=== PATIENT | female | born 1985 | race Caucasian/White ===

== ENCOUNTER 2020-09-19 11:03 | Outpatient (REF) | payer OTHER, SELFPAY ==
[2020-09-19 13:34] LABS: MANUAL DIFF FLAG NO
[2020-09-19 13:46] LABS: Basophils Absolute Auto 0.1 X10*3/uL (0.0-0.2); Basophils Percent Auto 0.5 % (0-2); Eosinophils Absolute Auto 0.2 X10*3/uL (0.0-0.4); Eosinophils Percent Auto 1.5 % (0-4); Hematocrit 36.2 % (37-47); Hemoglobin 11.9 g/dl (12.0-16.0); Imm Gran Abs Auto 0.04 X10*3/uL (0.00-0.03); Imm Gran Pct Auto 0.4 % (0.0-0.4); Lymphocytes Absolute Auto 1.7 X10*3/uL (1.2-4.9); Lymphocytes Percent Auto 15.3 % (20-40); Mean Corpuscular HGB Conc 32.9 g/dl (31.0-35.0); Mean Corpuscular Hemoglobin 30.6 pg (27.0-33.0); Mean Corpuscular Volume 93.1 fL (80-98); Mean Platelet Volume 11.4 fL (9.4-12.3); Monocytes Absolute Auto 0.4 X10*3/uL (0.1-1.2); Monocytes Percent Auto 3.2 % (2-11); Neutrophils Absolute Auto 8.8 X10*3/uL (2.0-8.3); Neutrophils Percent Auto 79.1 % (45-73); Platelet Count 357 X10*3/uL (160-400); Red Blood Count 3.89 X10*6/uL (4.20-5.50); Red Cell Distribution Width 11.9 % (11.0-16.0); White Blood Count 11.1 X10*3/uL (4.8-10.8)
== END 2020-09-19 11:04 | disposition home or self-care (01) ==
LOC: HO.10HDL 11:03
PROVIDERS: Visit Provider Internal Medicine
DX: K64.9 Unspecified hemorrhoids (principal)
CPT/HCPCS: 36415; 85025

== ENCOUNTER → 2020-09-21 11:16 | Outpatient (BNVA) | payer OTHER, SELFPAY | PROVIDERS: PCP Internal Medicine; Visit Provider Surgery | DX: K64.2 Third degree hemorrhoids (principal) | CPT/HCPCS: 46600; 99202 ==

== ENCOUNTER 2020-10-03 15:45 | Emergency (ER) | payer OTHER, SELFPAY ==
[2020-10-03 15:56] VITALS: BP 138/91; PULSE 95; RESP 16; TEMP 36.7; O2SAT 100; BMI 24.7
--- NOTE | 2020-10-03 16:10 | ECG_ITS ---
Test Reason : ARM PAIN Blood Pressure : / mmHG Vent. Rate : 089 BPM Atrial Rate : 089 BPM P-R Int : 152 ms QRS Dur : 084 ms QT Int : 364 ms P-R-T Axes : 057 063 051 degrees QTc Int : 442 ms Normal sinus rhythm with sinus arrhythmia Normal ECG No previous ECGs available Referred By: Justino Bell Electronically Signed By:James Lynn
--- NOTE | 2020-10-03 16:11 | XR_ITS ---
EXAMINATION: XR CHEST CLINICAL INFORMATION: Left-sided chest pain COMPARISON: None TECHNIQUE: 2 views of the chest were obtained. FINDINGS: The lungs are clear. The vascularity is normal. The costophrenic sulci are well-defined. The heart is normal in size. The hilar and mediastinal contours and bony structures are unremarkable. XR/XR chest 2V IMPRESSION: Normal chest.
--- NOTE | 2020-10-03 16:36 | ED.GENADULT ---
HPI - General Adult General Chief complaint: Extremity Problem Stated complaint: LT ARM PAIN/PRESSURE Time Seen by Provider: 10/03/20 15:59 Source: patient Mode of arrival: EMS Limitations: no limitations History of Present Illness HPI narrative: 35-year-old female who presents emergency department for evaluation of left-sided chest pain and left arm pain which started one week prior, she had a sudden onset of left sided chest serenity while at rest. She states that the pain has been constant since onset, the pain is sharp and is [id number] in intensity, the pain is worsened if she pushes on the area of pain, the pain does not change with movement or with breathing. She also complains of sudden onset of left arm pain which started 1 hour prior to coming to the emergency department. She developed a sharp pain in her left arm that radiated all the way down to her hand. She states that the pain was constant and moderate in intensity. The pain resolved but she now has a mild heavy sensation a in her left arm. She denies any weakness. She denies headache, nausea, vomiting, neck pain. She has not had any known injury. She does not take control pills. She has not been on any long trips recently. She denies pain or swelling in her lower extremities. Related Data Home Medications Medication Instructions Recorded Confirmed No Known Home Meds 09/21/20 09/21/20 Allergies Allergy/AdvReac Type Severity Reaction Status Date / Time No Known Allergies Allergy Unverified 05/25/20 16:15 [No Known Allergies*] Review of Systems Review of Systems: Yes all other systems are reviewed and are negative Neurologic: Reports Abnormal speech present [facility] Past Medical History [facility] Narrative: The patient has acne which she takes spironolactone for, she is not taking this medication in over 1 week, she denies tobacco use, she occasionally drinks alcohol, she denies drug use. Medical History (Updated 09/21/20 @ 11:45 by Wayne Wiley MD) Hemorrhoids that prolapse with straining and require manual replacement back inside anal canal Surgical History (Updated 09/21/20 @ 11:27 by JEFF Vines) History of wisdom tooth extraction Family History Family History (Updated 09/21/20 @ 11:28 by JEFF Vines) Maternal Grandmother History of colon cancer Social History Social History (Updated 09/21/20 @ 11:28 by JEFF Vines) Alcohol intake: current Alcohol intake frequency: holidays/special occasions only Smoking Status: Never smoker Advance Directives: No Advance Directives Information Provided: No Physical Exam Vital Signs: Vital Signs: Last Vital Signs Temp 98.7 F 10/03/20 17:02 Pulse 87 10/03/20 17:02 Resp 17 10/03/20 17:02 BP 107/64 10/03/20 17:02 Pulse Ox 100 10/03/20 17:02 Body Mass Index 24.7 Const: General: cooperative and healthy appearing Orientation/consciousness: oriented to person and oriented to place Limitations: no limitations HENMT: Head: Yes normal to inspection, Yes normocephalic and Yes atraumatic Ears: external ears normal General nose exam: Normal external nose present Face and sinus: Yes normal facial exam Mouth: Normal oral and palatal mucosa present Throat: Yes posterior oropharynx normal Eyes: Periorbital: periorbital findings normal Eyelids: Yes eyelids normal Conjunctivae: conjunctivae normal Sclerae: sclerae normal Corneas: corneas normal Pupils: Equal, round and reactive pupils present Direct Ophthalmoscopy: normal light reflex Neck: Neck: Yes full ROM, Yes no lymphadenopathy, Yes no meningeal signs, Yes trachea midline and Yes supple Chest: Chest palpation & inspection: normal inspection of the chest and tenderness (Left anterior chest) Resp: Effort & Inspection: normal respiratory effort and able to speak in complete sentences Auscultation: clear to auscultation bilaterally Cardio: Rate: regular rate Rhythm: regular rhythm Heart sounds: S1 normal heart sound present, S2 normal heart sound present and no murmurs GI: Inspection: Yes normal to inspection Palpation (GI): Soft to palpation, nontender, no guarding, not rigid and No hepatosplenomegaly present : General: Yes no CVA tenderness Back/Spine/Pelvis: Back: no CVA tenderness Cervical Spine: normal cervical lordosis Thoracic/Lumbar Spine: thoracic and lumbar spine normal to inspection Skin: Lesions: no lesions Rashes: no rashes Wounds: no wounds Neuro: General: oriented to person, oriented to place and no meningeal signs Cranial nerves: Yes CN's II-XII intact bilaterally and Yes Equal, round and reactive pupils present Cognition (Neuro): normal cognition Speech: Abnormal speech present Motor exam (neuro): 5/5 motor strength present throughout Extrem: General: Yes normal to inspection, Yes full ROM and Yes other (Normal strength, normal light touch he) Psych: Appearance: well kempt Mental Status: mental status grossly normal Speech and movement: Normal speech and movement present Affect: normal affect Attitude: cooperative Thought process: Normal thought process present Thought content: Normal thought content present Course Course Course Narrative: 35-year-old female who presents emergency department for evaluation left-sided anterior chest pain x1 week and left arm pain and heaviness which began 1 hour prior to coming to the emergency department. Physical examination did reveal tenderness with palpation of the left anterior chest otherwise was unremarkable. Chest x-ray revealed no evidence of pneumonia or pneumothorax. Twelve lead EKG was normal. My impression is that the patient's pain is atypical for cardiac pain and atypical for neurologic pain in is most consistent with costochondritis. I did discuss this with the patient. She was given verbal and printed instructions and discharged home. Medical Decision Making ECG Data Attestation: I personally reviewed and interpreted this ECG as follows: Interpretation: 1638: Normal sinus rhythm with a rate of 89, normal OR, QRS and QTC intervals, no T-wave abnormalities, no ST segment elevation or depression. This is a normal EKG. Discharge Plan Discharge Prescriptions: No Action No Known Home Meds RF: 0
[2020-10-03 17:02] VITALS: BP 107/64; PULSE 87; RESP 17; TEMP 37.1; O2SAT 100
== END 2020-10-03 17:53 | disposition home or self-care (01) ==
PROVIDERS: Emergency Provider Emergency Medicine Emergency Medical Services; PCP Internal Medicine
DX: M94.0 Chondrocostal junction syndrome [Tietze] (principal); M79.602 Pain in left arm
CPT/HCPCS: 71046; 93005; 99283

== ENCOUNTER 2020-10-27 08:35 | Day surgery (SDC) | payer OTHER, SELFPAY ==
[2020-10-20 15:18] VITALS: BMI 25.0
--- NOTE | 2020-10-26 09:04 | P.CONAN_ITS ---
Documented by User: Martina Brice 10/26/20 09:06 HPI - Anesthesia Eval Consult details Narrative: 35yo F for EUA, Hemorrhoidectomy PMFSH Active Problems Active Problems: All Active Problems (Updated 10/04/20 @ 00:00 by Rosangela Vargas) Hemorrhoids that prolapse with straining and require manual replacement back inside anal canal (Acute) Past Medical History Medical History No significant past medical history Family History Family History Maternal Grandmother History of colon cancer Surgical History Surgical History (Updated 10/27/20 @ 09:19 by Vilma Sommer) History of wisdom tooth extraction Hx of lithotripsy Social History Social History Are you a primary hemodialysis patient care specialist to a significant other at home: No Do you presently have visiting nurse or other home services: No Alcohol intake: current Alcohol intake frequency: holidays/special occasions only Smoking Status: Never smoker Advance Directives: No Advance Directives Information Provided: No Advance Directives on File: No Recently lost weight without trying: No Meds Allergies Allergy/AdvReac Type Severity Reaction Status Date / Time No Known Allergies Allergy Verified 10/27/20 08:58 [No Known Allergies*] Exam Exam Date and Time: October 26, 2020 0904 Height,Weight and Vital Signs: Height 5 ft 3 in Weight 63.957 kg Assessment and Plan Assessment Anesthesia Assessment: Chart Reviewed Documented by User: Vilma Sommer 10/27/20 09:21 PMFSH Active Problems Active Problems: Tachycardia today- anxious, 'feels hot' . No fever Past Medical History Medical History No significant past medical history Family History Family History Maternal Grandmother History of colon cancer Family history of problems with anesthesia: No Surgical History Surgical History (Updated 10/27/20 @ 09:19 by Vilma Sommer) History of wisdom tooth extraction Hx of lithotripsy History of Problems with Anesthesia: No Social History Social History Are you a primary hemodialysis patient care specialist to a significant other at home: No Do you presently have visiting nurse or other home services: No Alcohol intake: current Alcohol intake frequency: holidays/special occasions only Smoking Status: Never smoker Advance Directives: No Advance Directives Information Provided: No Advance Directives on File: No Recently lost weight without trying: No Meds Allergies Allergy/AdvReac Type Severity Reaction Status Date / Time No Known Allergies Allergy Verified 10/27/20 08:58 [No Known Allergies*] Exam Height,Weight and Vital Signs: Vital Signs Temp Pulse Resp BP Pulse Ox 10/27/20 08:53 98.7 F 114 H 16 117/82 98 Pertinent Lab Results Pertinent Lab Results: Lab Results 10/27/20 Range/Units 08:42 Urine Test NEGATIVE (NEGATIVE) Airway Mallampati Class: II TM Dist: >3cm Neck ROM: Full Loose/Missing/Broken Teeth: No Heart: RRR Lungs: CTAB Assessment and Plan Assessment Anesthesia Assessment: Anesthesia Plan Discussed and Chart Reviewed Final Anesthetic Review NPO: Yes ASA Class: I Final Preanesthetic Review: No Changes in Pt Med Stat, Meds/Allgs Chart Reviewed, Consent Obtained/Reviewed and Anes Risks/Benef Reviewed Patient Risk: Low Procedure Risk: Low Assessment/Block/Sedation in SS: Assess/Block/Sedation- Anesthetic Plan Anesthetic Plan: GA Disposition: Standard PACU
[2020-10-27] VITALS (10 sets, daily range): BP systolic 110–127; BP diastolic 67–82; PULSE 81–125; RESP 16–20; TEMP 36.3–37.1; O2SAT 96–100
--- NOTE | 2020-10-27 08:48 | MHC.SHP ---
Pre-Procedural Eval Section B Chief Complaint: Prolapsed Hemorrhoids Details of Present Illness: zendejas prolapsing hemorrhoids Relevant Family History (Specify if Yes): No Relevant Social History: None Present Medications: see Short Stay Collaborative assessment Medical History: No relevant PMH History of Previous Operations: No relevant previous surgery Allergies: Allergies Allergy/AdvReac Type Severity Reaction Status Date / Time No Known Allergies Allergy Unverified 10/20/20 15:11 [No Known Allergies*] Review of Systems Sugical H&P ROS: Negative: Constitution, Cardiovascular, Respiratory, Neurological, Psychiatric, Hem-Onc, Allergic/Immunologic, Gastrointestinal, Genitourinary, Musculoskeletal, Integumentary, Endocrine and Eyes/Ears/Nose/Throat Exam Surgical H&P Exam: Normal: HEENT, Normal: Heart, Normal: Lungs, Normal: Extremities, Normal: Abdomen, Normal: Skin and Normal: Neurological Plan Diagnosis/Plan: Unchanged I have reviewed the history and physical and performed a pertinent physical examination on my patient. No changes have occurred unless specified.
[2020-10-27 08:58] LABS: Urine Pregnancy NEGATIVE (NEGATIVE)
[2020-10-27 08:59] LABS: UPreg QC Valid YES
[2020-10-27] MEDS: Lactated Ringers 1,000 ML 100 ML IVCONT (09:16)
--- NOTE | 2020-10-27 10:26 | W.PM.OPN ---
Operative Note Operative Note Date of Service: 10/27/20 Narrative: PREOP DIAGNOSIS: INTERNAL AND EXTERNAL HEMORRHOIDS POSTOP DIAGNOSIS: THE SAME; ANAL PAPILLOMA PROCEDURE DONE: EXAM UNDER ANESTHESIA, HEMORRHOIDECTOMY, CAUTERIZATION OF A PAPILLOMA IN THE ANAL CANAL SURGEON: MARGARITA MORGAN M.D. The patient is a 55 year female was referred to me because of prolapsing hemorrhoids with significant discomfort. She was seen in the office and was noted to have an easily prolapsing large internal hemorrhoid on the right side along with some accompanying external component. She wanted proceed with hemorrhoidectomy in view of discomfort and pain. She was aware of the risks, benefits, and alternatives. She was brought to the operating room and placed in prone maryanne-knife position under general anesthesia via endotracheal tube. The buttocks were retracted with wide tape laterally. The perianal area was prepped in usual sterile fashion. A surgical time-out was done. The patient received Cefotan 2 g IV preoperatively. Examination of the anal orifice revealed an external hemorrhoidal column on the right. I inserted a Amanda Nielson retractor into the anal canal. I examined the anal canal circumferentially. Proximal to the hemorrhoidal column into the anal canal was note of a large, long 3 cm internal hemorrhoid that appeared to easily prolapse. This was fat with a Burns grasper. I created a eupjvi-am-chekw stitch at the pedicle just proximal to this column. I made an incision around this hemorrhoidal column to the perianal skin using blade 15. I excised this hemorrhoidal column above the plane of sphincters using scissors. I closed this incision with a running chromic 3-0 stitch. Additional hemostatic pehowo-hx-isidz sutures were placed for oozing areas I examined the rest of the anal canal. There was note of a small papillomatous lesion in the anal canal about 4 mm in size and this is cauterize. Other than that, there were no lesions seen. There is no induration or any fissure. I infiltrated the perianal area Marcaine 0.5% for postop analgesia. The procedure was then completed. The patient appears well. The complain noted. Initial fine counts sponge and instruments were correct. Estimated blood loss was 5 cc. The patient extubated without difficulty and transferred to recovery room with vital signs.
--- NOTE | 2020-10-27 10:32 | PM.OP ---
Brief Operative Note Date of Service: 10/27/20 Pre-op diagnosis: HEMORRHOIDS Post-op diagnosis: same Procedure: EUA, HEMORRHOIDECTOMY Surgeon: Wayne Wiley MD Anesthesia: GETA Estimated blood loss (mL): 2 Pathology: other (HEMORRHOIDS)
[2020-10-27] MEDS: Acetaminophen 325 MG TABLET 650 MG PO (10:52)
[2020-10-27] MEDS: oxyCODONE HCl Immed Release 5 MG TABLET PO (10:52)
[2020-10-27] MEDS: fentaNYL citrate/PF 100 MCG/2 ML VIAL 25 MCG IVPUSH ×2 (11:37→11:42)
== END 2020-10-27 12:32 | disposition home or self-care (01) ==
PROVIDERS: Nurse Practitioner; PCP Internal Medicine; Visit Provider Surgery
PROC: (CPT 46255; principal; 2020-10-27 09:50)
DX: K64.2 Third degree hemorrhoids (principal); K64.4 Residual hemorrhoidal skin tags; D12.9 Benign neoplasm of anus and anal canal
CPT/HCPCS: 46255; 46910; 81025; 88304; J0330; J2250; J2405; J3010

== ENCOUNTER → 2020-11-08 08:53 | Outpatient (BNVA) | payer OTHER, SELFPAY | PROVIDERS: PCP Internal Medicine; Visit Provider Surgery | DX: K64.2 Third degree hemorrhoids (principal) | CPT/HCPCS: 99212 ==

== ENCOUNTER 2021-01-23 11:36 | Emergency (ER) | payer OTHER, SELFPAY ==
--- NOTE | ~2021-01-23 | US_ITS ---
EXAMINATION: PELVIC ULTRASOUND, TRANSCUTANEOUS PELVIC ULTRASOUND, TRANSVAGINAL PELVIC DOPPLER INCLUDING SPECTRAL ANALYSIS AND COLOR MAPPING CLINICAL INFORMATION: Left lower quadrant pain. Status post medical . Evaluate for torsion, abscess or retained products of conception COMPARISON: None TECHNIQUE: Transcutaneous pelvic ultrasound The patient was asked to void completely and reexamined vaginally to better characterize the endometrial contents and adnexa. Color mapping and spectral analysis with Doppler assessment of the adnexa FINDINGS: Transcutaneous scanning does not demonstrate any abnormality in the region of the vagina. No large adnexal mass or collection. Transvaginal scanning demonstrates the uterus is anteverted. The uterus measures 8.5 x 4.3 x 5.4 cm. The cervix measures at least 4.0 cm. Some small hypoechoic areas within the cervical stroma suggest nabothian cysts. The endometrium is heterogeneous and measures approximately 1.5 cm. The interface between the endometrial echo stripe and junctional zone is slightly irregular. This could reflect recent procedure. The myometrium is slightly heterogeneous without a discrete mass. No collection within the myometrium. The right ovary is not definitely identified. No suspicious right adnexal mass or collection. The left ovary measures approximately 5.0 x 3.2 x 3.6 m. The estimated left ovarian volume is 30 mL. This is enlarged. There are several simple appearing left ovarian cysts. There is color signal present within the left ovary. There are venous and low resistance arterial spectra obtained from the left adnexa. No suspicious solid left ovarian mass. There is a small amount of nonspecific free pelvic fluid. US/US pelvic ovarian doppler IMPRESSION: Some heterogeneous thickening of the endometrium. This could reflect recent . There is no definite retained products of conception, abscess or ectopic gas within the endometrial cavity. The right ovary is not demonstrated. Small amount of nonspecific free pelvic fluid. There is no Doppler evidence of left ovarian torsion
--- NOTE | ~2021-01-23 | CT_ITS ---
EXAMINATION: CT ABDOMEN AND PELVIS WITHOUT CONTRAST CLINICAL INFORMATION: abd and rectal pain . COMPARISON: No pertinent prior studies are available for comparison. TECHNIQUE: Multidetector volumetric imaging was performed from the superior aspect of the liver through the pubic symphysis without contrast per renal stone protocol. Sagittal and coronal reformatted images were obtained on the technologist workstation. This CT examination was performed using dose optimization techniques as appropriate, variously including the following: *Automated exposure control *Adjustment of mA and/or kV according to patient size (this includes techniques or standardized protocols for targeted exams where dose is matched to indication/reason for exam; i.e. extremities or head) *Use of iterative reconstruction technique DLP: 452 mGy-cm. FINDINGS: LUNG BASES: The visualized lung bases are unremarkable. LIVER, GALLBLADDER, BILIARY TREE: The non-contrast liver is normal in size, shape, and attenuation. No focal hepatic lesion or biliary ductal dilatation is present. The gallbladder is contracted but unremarkable with no evidence of radiopaque gallstones, gallbladder wall thickening, or obvious pericholecystic inflammatory changes. PANCREAS: Unremarkable. SPLEEN: Unremarkable. ADRENAL GLANDS: Unremarkable. KIDNEYS AND URETERS: The kidneys are normal in size, shape, and attenuation. No hydronephrosis, hydroureter, or calculi seen. No perinephric stranding. BLADDER: Unremarkable. GASTROINTESTINAL TRACT: The small and large bowel are unremarkable. The appendix is unremarkable. ABDOMINAL WALL: No significant hernia is appreciated. LYMPHOVASCULAR STRUCTURES: No lymphadenopathy. The aorta is unremarkable.. PELVIC VISCERA: Physiologic changes in the bilateral adnexa. Coarse calcification abutting the fundal portion of uterus possibly related to an old calcified fibroid or previous torsed appendage epiploica but this is of no acute significance. OSSEUS STRUCTURES: Unremarkable. CT/CT abdomen pelvis wo con IMPRESSION: No acute intra-abdominal process seen. Physiologic and chronic appearing changes noted.
[2021-01-23 12:20] VITALS: BP 149/86; PULSE 109; RESP 18; TEMP 37.1; O2SAT 100; BMI 24.7
[2021-01-23 14:06] LABS: MANUAL DIFF FLAG NO
[2021-01-23 14:09] LABS: Basophils Absolute Auto 0.1 X10*3/uL (0.0-0.2); Basophils Percent Auto 0.5 % (0-2); Eosinophils Absolute Auto 0.1 X10*3/uL (0.0-0.4); Eosinophils Percent Auto 0.8 % (0-4); Hematocrit 36.6 % (37-47); Hemoglobin 12.4 g/dl (12.0-16.0); Imm Gran Abs Auto 0.08 X10*3/uL (0.00-0.03); Imm Gran Pct Auto 0.7 % (0.0-0.4); Lymphocytes Absolute Auto 1.7 X10*3/uL (1.2-4.9); Lymphocytes Percent Auto 14.4 % (20-40); Mean Corpuscular HGB Conc 33.9 g/dl (31.0-35.0); Mean Corpuscular Volume 91.5 fL (80-98); Monocytes Absolute Auto 0.3 X10*3/uL (0.1-1.2); Monocytes Percent Auto 2.8 % (2-11); Neutrophils Absolute Auto 9.5 X10*3/uL (2.0-8.3); Neutrophils Percent Auto 80.8 % (45-73); Platelet Count 345 X10*3/uL (160-400); White Blood Count 11.7 X10*3/uL (4.8-10.8)
[2021-01-23 14:14] LABS: UPreg QC Valid YES; Urine Pregnancy NEGATIVE (NEGATIVE)
[2021-01-23 14:24] LABS: Glucose Urine UA NEG (NEG); Leukocyte Esterase Urine NEG (NEG); Nitrite Urine NEG (NEG); Specific Gravity - Urine <= 1.005 (1.005-1.025); Urine Blood TRACE (NEG); Urine Ketones NEG (NEG); Urine Protein NEG (NEG-TRACE)
[2021-01-23 14:25] LABS: Appearance Urine CLEAR; Color Urine YELLOW
[2021-01-23 14:30] LABS: Squamous Epithelial Cell Urine 1+ /LPF; WBC Urine 0 /HPF (0-4)
[2021-01-23 14:37] LABS: Alanine Aminotransferase 8 U/L (0-31); Albumin Level 4.5 g/dL (3.5-5.0); Alkaline Phosphatase 72 U/L (39-117); Anion Gap 14 (12-20); Aspartate Amino Transferase 15 U/L (5-31); Bilirubin Total 0.8 mg/dL (0.0-1.0); Blood Urea Nitrogen 8 mg/dL (9-16); Calcium 9.1 mg/dL (8.4-10.2); Carbon Dioxide 22 mmol/L (22-29); Chloride 105 mmol/L (96-108); Creatinine Clr Calc Pharmacy 94.8; Estimated Glomerular Filt Rate > 60; Glucose Random 116 mg/dL (60-115); Potassium 3.9 mmol/L (3.3-5.1); Sodium 137 mmol/L (135-145); Total Protein 7.5 g/dL (6.5-8.0)
[2021-01-23 15:48] VITALS: BP 140/87; PULSE 104; RESP 16; TEMP 36.9; O2SAT 100
--- NOTE | 2021-01-23 16:41 | PC.NURSE ---
Pt declined IV and pain medication. She states that she is not in pain but rather has some lower abdominal discomfort . Memo LEAL aware. Pt to be brought to ultrasound at this time.
[2021-01-23 16:57] LABS: HCG Quantitative < 2 mIU/mL
--- NOTE | 2021-01-23 17:43 | ED.ABDPAIN ---
HPI - Abdominal Pain General Chief Complaint: Abdominal Pain Stated Complaint: ABD PAIN Time Seen by Provider: 01/23/21 15:59 Source: patient Mode of arrival: ambulatory Limitations: no limitations History of Present Illness HPI narrative: Patient presents to ED for evaluation for left suprapubic pain/cramping and evaluation for possible retained products. Patient had an on December 15 and had ultrasound which showed retained products, but patient never had a follow-up. Patient was informed by her OBGYN may be the product could be removed on his own through vaginal bleeding. Patient states history of left ovarian cyst and started having left suprapbuci pain since Friday and was concerned maybe she still have retained products. Patient describes left pubic pain as cramping. Patient denies any vaginal bleeding, flank pain, fever, or chills. Patient denies any right lower quadrant pain or upper abdominal pain Related Data Previous Rx's Medication Instructions Recorded docusate sodium [Colace] 100 mg PO BID #60 cap 10/27/20 ibuprofen 600 mg PO Q6H PRN #30 tab 10/27/20 oxycodone-acetaminophen [Percocet] 1 - 2 tab PO Q4-6H PRN #30 tab 10/27/20 Allergies Allergy/AdvReac Type Severity Reaction Status Date / Time seafood Allergy Angioedema Verified 01/23/21 12:20 Review of Systems Review of Systems Yes all other systems are reviewed and are negative Constitutional: Reports as per HPI and Reports no additional constitutional complaints Eyes: Reports as per HPI and Reports no additional eye complaints Reports system reviewed and no additional complaints, except as documented and Reports as per HPI Cardiovascular: Reports as per HPI and Reports no additional cardiovascular complaints Respiratory: Reports as per HPI and Reports no additional respiratory complaints Gastrointestinal: Reports as per HPI and Reports no additional gastrointestinal complaints Comments: Suprapubic pain Genitourinary: Reports no additional female genitourinary complaints and Reports as per HPI Musculoskeletal: Reports no additional musculoskeletal complaints and Reports as per HPI Reports system reviewed and no additional complaints, except as documented and Reports as per HPI Psychiatric: Reports no additional psychiatric complaints and Reports as per HPI Physical Exam Vital Signs: Vital Signs: Last Vital Signs Temp 98.4 F 01/23/21 15:48 Pulse 104 H 01/23/21 15:48 Resp 16 01/23/21 15:48 BP 140/87 H 01/23/21 15:48 Pulse Ox 100 01/23/21 15:48 Body Mass Index 24.7 Const: General: cooperative, healthy appearing, comfortable, no acute distress, well developed, alert and awake Orientation/consciousness: patient oriented x3 HENMT: Head: Yes normal to inspection, Yes No palpable skull fracture present, Yes normocephalic, Yes atraumatic and No abrasion Eyes: General: appearance normal, both eyes and all related structures Neck: Neck: Yes normal visual inspection, Yes full ROM, Yes no lymphadenopathy, Yes no meningeal signs, Yes trachea midline, Yes supple and No tender Chest: Chest palpation & inspection: normal inspection of the chest and normal palpation of entire chest wall Resp: Effort & Inspection: normal respiratory effort and able to speak in complete sentences Auscultation: clear to auscultation bilaterally Cardio: Jugular venous distension: no JVD Heart sounds: S1 normal heart sound present and S2 normal heart sound present GI: Inspection: Yes normal to inspection and No abdominal wall ecchymosis Palpation (GI): Soft to palpation, not firm, Tenderness to palpation present (GI) suprapubicly (Left); not in the epigastrum, not in the LLQ, not in the RLQ, not in the LUQ, not in the RUQ, not at McBurney's point, not periumbilically, Miller's sign negative, obturator sign negative, psoas sign negative, with no rebound tenderness and Rovsing's sign negative, no guarding and not rigid : General: No CVA tenderness and Yes no CVA tenderness Back/Spine/Pelvis: Back: no CVA tenderness, No CVA tenderness and No back tenderness Skin: General skin exam: no rashes or lesions noted and elasticity normal Neuro: General: patient oriented x3, no meningeal signs and CN's II-XI intact bilaterally Cranial nerves: Yes CN's II-XII intact bilaterally Extrem: General: Yes normal to inspection and Yes full ROM Psych: Appearance: grossly normal, well kempt and not disheveled Course Course Course Narrative: Patient have labs drawn. UA ordered. Not suspecting any abdominal etiology for symptom or pelvic issues. Send patient for transvaginal ultrasound to rule out retained products and ovarian torsion and ovarian cyst. Patient presently does not want any IV or pain medication. Patient states pain resolved. Reevaluation(s) Reevaluation #1: Case signed out to GIRISH Patiño for follow up. MDM - Abdominal Pain Lab Data Result diagrams: 01/23/21 14:00 01/23/21 14:00 Labs: Lab Results 01/23/21 01/23/21 01/23/21 Range/Units 14:00 14:00 14:00 WBC 11.7 H (4.8-10.8) X10*3/uL RBC 4.00 L (4.20-5.50) X10*6/uL Hgb 12.4 (12.0-16.0) g/dl Hct 36.6 L (37-47) % MCV 91.5 (80-98) fL MCH 31.0 (27.0-33.0) pg MCHC 33.9 (31.0-35.0) g/dl RDW 12.0 (11.0-16.0) % Plt Count 345 (160-400) X10*3/uL MPV 11.0 (9.4-12.3) fL Immature Gran % (Auto) 0.7 H (0.0-0.4) % Neut % (Auto) 80.8 H (45-73) % Lymph % (Auto) 14.4 L (20-40) % [place] % (Auto) 2.8 (2-11) % Eos % (Auto) 0.8 (0-4) % Baso % (Auto) 0.5 (0-2) % Lymph # (Auto) 1.7 (1.2-4.9) X10*3/uL [place] # (Auto) 0.3 (0.1-1.2) X10*3/uL Eos # (Auto) 0.1 (0.0-0.4) X10*3/uL Baso # (Auto) 0.1 (0.0-0.2) X10*3/uL Abs Immat Gran (auto) 0.08 H (0.00-0.03) X10*3/uL Absolute Neuts (auto) 9.5 H (2.0-8.3) X10*3/uL Absolute Nucleated RBC 0.000 (0.0-0.012) X10*3/uL Nucleated RBC % (auto) 0.0 (0.0-0.2) /100WBC Hold Blue Top SEE NOTE Sodium (135-145) mmol/L Potassium (3.3-5.1) mmol/L Chloride (96-108) mmol/L Carbon Dioxide (22-29) mmol/L Anion Gap (12-20) BUN (9-16) mg/dL Creatinine (0.5-1.4) mg/dL Estim Creat Clear Calc Estimated GFR Random Glucose (60-115) mg/dL Calcium (8.4-10.2) mg/dL Total Bilirubin (0.0-1.0) mg/dL AST (5-31) U/L ALT (0-31) U/L Alkaline Phosphatase (39-117) U/L Total Protein (6.5-8.0) g/dL Albumin (3.5-5.0) g/dL Beta HCG, Quant mIU/mL Urine Color Urine Appearance Urine pH (5.0-8.0) Ur Specific [place] (1.005-1.025) Urine Protein (NEG-TRACE) MG/DL Urine Glucose (UA) (NEG) MG/DL Urine Ketones (NEG) MG/DL Urine Blood (NEG) Urine Nitrite (NEG) Ur Leukocyte Esterase (NEG) Urine RBC (0) /HPF Urine WBC (0-4) /HPF Ur Squamous Epith Cells /LPF Urine Bacteria /LPF Urine Test NEGATIVE (NEGATIVE) 01/23/21 01/23/21 Range/Units 14:00 14:00 WBC (4.8-10.8) X10*3/uL RBC (4.20-5.50) X10*6/uL Hgb (12.0-16.0) g/dl Hct (37-47) % MCV (80-98) fL MCH (27.0-33.0) pg MCHC (31.0-35.0) g/dl RDW (11.0-16.0) % Plt Count (160-400) X10*3/uL MPV (9.4-12.3) fL Immature Gran % (Auto) (0.0-0.4) % Neut % (Auto) (45-73) % Lymph % (Auto) (20-40) % [place] % (Auto) (2-11) % Eos % (Auto) (0-4) % Baso % (Auto) (0-2) % Lymph # (Auto) (1.2-4.9) X10*3/uL [place] # (Auto) (0.1-1.2) X10*3/uL Eos # (Auto) (0.0-0.4) X10*3/uL Baso # (Auto) (0.0-0.2) X10*3/uL Abs Immat Gran (auto) (0.00-0.03) X10*3/uL Absolute Neuts (auto) (2.0-8.3) X10*3/uL Absolute Nucleated RBC (0.0-0.012) X10*3/uL Nucleated RBC % (auto) (0.0-0.2) /100WBC Hold Blue Top Sodium 137 (135-145) mmol/L Potassium 3.9 (3.3-5.1) mmol/L Chloride 105 (96-108) mmol/L Carbon Dioxide 22 (22-29) mmol/L Anion Gap 14 (12-20) BUN 8 L (9-16) mg/dL Creatinine 0.75 (0.5-1.4) mg/dL Estim Creat Clear Calc 94.8 Estimated GFR > 60 Random Glucose 116 H (60-115) mg/dL Calcium 9.1 (8.4-10.2) mg/dL Total Bilirubin 0.8 (0.0-1.0) mg/dL AST 15 (5-31) U/L ALT 8 (0-31) U/L Alkaline Phosphatase 72 (39-117) U/L Total Protein 7.5 (6.5-8.0) g/dL Albumin 4.5 (3.5-5.0) g/dL Beta HCG, Quant < 2 mIU/mL Urine Color YELLOW Urine Appearance CLEAR Urine pH 6.0 (5.0-8.0) Ur Specific [place] <= 1.005 (1.005-1.025) Urine Protein NEG (NEG-TRACE) MG/DL Urine Glucose (UA) NEG (NEG) MG/DL Urine Ketones NEG (NEG) MG/DL Urine Blood TRACE (NEG) Urine Nitrite NEG (NEG) Ur Leukocyte Esterase NEG (NEG) Urine RBC 1-4 (0) /HPF Urine WBC 0 (0-4) /HPF Ur Squamous Epith Cells 1+ /LPF Urine Bacteria NONE /LPF Urine Test (NEGATIVE) Discharge Plan Discharge Prescriptions: No Action oxycodone-acetaminophen [Percocet] 5-325 mg tablet 1 - 2 tab PO Q4-6H PRN (Reason: pain) Qty: 30 RF: 0 docusate sodium [Colace] 100 mg capsule 100 mg PO BID Qty: 60 RF: 2 ibuprofen 600 mg tablet 600 mg PO Q6H PRN (Reason: pain) Qty: 30 RF: 0 PMFSH Past Medical History Medical History No significant past medical history Surgical History History of hemorrhoidectomy History of wisdom tooth extraction Hx of lithotripsy Family History Family History Maternal Grandmother History of colon cancer Social History Social History Alcohol intake: never Smoking Status: Never smoker Use of substances other than those prescribed or required for medical reasons: No Advance Directives: Yes Advance Directives Information Provided: Yes Advance Directives on File: No Patient : No
[2021-01-23] MEDS: metroNIDAZOLE 500 MG TABLET PO (20:23)
[2021-01-23] MEDS: Fluconazole 150 MG TABLET PO (20:23)
[2021-01-23 21:05] VITALS: BP 131/79; PULSE 96; RESP 20; TEMP 36.9; O2SAT 100
[2021-01-24 09:58] LABS: CT PCR NOT DETECTED (Not Detect.); NG PCR NOT DETECTED (Not Detect.)
[2021-01-24 11:26] LABS: BV Int Neg Control Negative (Negative); BV Int Pos Control Positive (Positive)
== END 2021-01-23 21:27 | disposition home or self-care (01) ==
PROVIDERS: Nurse Practitioner Family; Physician Assistant; Emergency Provider Emergency Medicine; PCP Internal Medicine
DX: B37.3 Candidiasis of vulva and vagina (principal); R10.32 Left lower quadrant pain
CPT/HCPCS: 36415; 74176; 76830; 76856; 80053; 81001; 81025; 84702; 85025; 87255; 87480; 87491; 87510; 87591; 87660; 93975; 99284

== ENCOUNTER 2021-01-30 14:21 | Outpatient (REF) | payer OTHER, SELFPAY ==
[2021-01-30 15:12] LABS: MANUAL DIFF FLAG NO
[2021-01-30 15:18] LABS: Basophils Absolute Auto 0.1 X10*3/uL (0.0-0.2); Basophils Percent Auto 0.5 % (0-2); Eosinophils Absolute Auto 0.2 X10*3/uL (0.0-0.4); Eosinophils Percent Auto 1.6 % (0-4); Hematocrit 37.7 % (37-47); Hemoglobin 12.8 g/dl (12.0-16.0); Imm Gran Abs Auto 0.06 X10*3/uL (0.00-0.03); Imm Gran Pct Auto 0.5 % (0.0-0.4); Lymphocytes Absolute Auto 3.7 X10*3/uL (1.2-4.9); Lymphocytes Percent Auto 31.4 % (20-40); Mean Corpuscular Hemoglobin 31.1 pg (27.0-33.0); Mean Corpuscular Volume 91.5 fL (80-98); Mean Platelet Volume 11.6 fL (9.4-12.3); Monocytes Absolute Auto 0.5 X10*3/uL (0.1-1.2); Monocytes Percent Auto 4.6 % (2-11); Neutrophils Absolute Auto 7.2 X10*3/uL (2.0-8.3); Neutrophils Percent Auto 61.4 % (45-73); Platelet Count 396 X10*3/uL (160-400); Red Blood Count 4.12 X10*6/uL (4.20-5.50); Red Cell Distribution Width 12.2 % (11.0-16.0); White Blood Count 11.7 X10*3/uL (4.8-10.8)
[2021-01-30 15:40] LABS: D Dimer < 200 NG/ML
[2021-01-30 15:47] LABS: Alanine Aminotransferase 9 U/L (0-31); Albumin Level 4.6 g/dL (3.5-5.0); Alkaline Phosphatase 75 U/L (39-117); Anion Gap 16 (12-20); Aspartate Amino Transferase 16 U/L (5-31); Bilirubin Total 0.6 mg/dL (0.0-1.0); Blood Urea Nitrogen 5 mg/dL (9-16); C Reactive Protein 0.89 mg/dL (< or = 0.50); Calcium 9.6 mg/dL (8.4-10.2); Carbon Dioxide 22 mmol/L (22-29); Chloride 103 mmol/L (96-108); Estimated Glomerular Filt Rate > 60; Glucose Random 86 mg/dL (60-115); Potassium 3.7 mmol/L (3.3-5.1); Sodium 137 mmol/L (135-145)
== END 2021-01-30 14:22 | disposition home or self-care (01) ==
LOC: HO.LAB 14:21
PROVIDERS: PCP Internal Medicine; Visit Provider Internal Medicine
DX: R19.7 Diarrhea, unspecified (principal); R00.2 Palpitations; R06.02 Shortness of breath
CPT/HCPCS: 36415; 80053; 82550; 85025; 85379; 86140

== ENCOUNTER → 2021-02-07 11:16 | Outpatient (BNVA) | payer OTHER, SELFPAY | PROVIDERS: PCP Internal Medicine; Referring Provider Internal Medicine; Visit Provider Internal Medicine Cardiovascular Disease | DX: I49.8 Other specified cardiac arrhythmias (principal); R00.2 Palpitations | CPT/HCPCS: 99202; 99212 ==

== ENCOUNTER 2021-02-12 10:49 | Outpatient (REF) | payer OTHER, SELFPAY ==
[2021-02-12 14:15] LABS: TSH reflex Free T4 0.69 uIU/mL (0.32-4.0)
[2021-02-21 13:56] LABS: Metanephrine, Free <25
[2021-02-21 13:57] LABS: Normetanephrines, Free 25
[2021-02-21 14:00] LABS: Total Metanephrine, Free 25
== END 2021-02-12 10:50 | disposition home or self-care (01) ==
LOC: HO.10HDL 10:49
PROVIDERS: Visit Provider Internal Medicine Cardiovascular Disease
DX: R00.2 Palpitations (principal)
CPT/HCPCS: 36415; 83835; 84443

== ENCOUNTER → 2021-02-14 13:27 | Outpatient (REF) | payer OTHER, SELFPAY ==
--- NOTE | 2021-02-14 13:45 | ECG_ITS ---
Hook-up date: 2021-02-14 13:47:00 Duration: 25:26:00 Test Indications: PALPITATIONS Medications: [id number] QRS complexes 1 Ventricular ectopics which represent <1 % of total QRS comp. * Supraventricular ectopics which represent % of total QRS comp. * Paced QRS complexs which represent % of total QRS comp. VENTRICULAR ECTOPY 1 Isolated 0 Bigeminal Cycles 0 Couplets 0 Runs 0 Beats in Runs * Beats LONGEST at * BPM at :: -- * Beats FASTEST at * BPM at :: -- SUPRAVENTRICULAR ECTOPY * Isolated * Couplets * Runs * Beats in Runs * Beats LONGEST at * BPM at :: -- * Beats FASTEST at * BPM at :: -- HEART RATES 48 MIN at 05:53:28 2021-02-15 90 AVG 171 MAX at 15:27:10 2021-02-14 LONGEST RR 1.4960 secs at 06:18:16 2021-02-15 S-T LEVELS Channel 1 - 128 mm at 13:47:00 2021-02-14 - 128 mm at 13:47:00 2021-02-14 Channel 2 - 128 mm at 13:47:00 2021-02-14 - 128 mm at 13:47:00 2021-02-14 Channel 3 - 128 mm at 03:30:61 -- - 128 mm at 03:30:61 Basic rhythm Normal sinus rhythm No long pause or profound bradycardia Frequent Sinus tachycardia , 33% of time HR > 100 bpm No dangerous dysrhythm periods Patient did not report any symptoms in the diary Referred By: Arthur Florian Overread By: ARTHUR FLORIAN MD
== END ==
LOC: HO.CARD 13:27
PROVIDERS: Visit Provider Internal Medicine
DX: R00.2 Palpitations (principal)
CPT/HCPCS: 93226

== ENCOUNTER → 2021-02-19 11:19 | Outpatient (REF) | payer OTHER, SELFPAY ==
--- NOTE | 2021-02-19 11:22 | CA_ITS ---
Transthoracic Echocardiogram Patient (Last, First, Middle): Lorena Escobedo L Gender: Female Date of : 1985 Age: 35 Procedure Date: 02/19/2021 Procedure Type: Transthoracic Echocardiogram Location: OP Height: 160.02 cm Weight: 61.24 kg BSA: 1.64 m2 Heart Rate: bpm BP: 101 / 81 mmHg Bioinformatician: Referring MD: Arthur Florian MD Symptoms: R00.2 - Palpitations Study Quality: Good ECG Rhythm: Sinus tachycardia Conclusions: - The left ventricular systolic function is normal. The visually estimated ejection fraction is between 55-60%. - TAPSE mildly diminished (1.56cm); but annular doppler in normal range. - No obvious valvular pathology seen on this study. Findings Left Ventricle Normal left ventricular cavity size. There is normal left ventricular wall thickness. The left ventricular systolic function is normal. The visually estimated ejection fraction is between 55-60%. There is no evidence of regional wall motion abnormalities. Diastolic function is normal for age. Right Ventricle Normal right ventricular cavity size. TAPSE mildly diminished (1.56cm); but annular doppler in normal range. Atria The left atrium is normal in size. The right atrium is normal in size. Aortic Valve There is a normal trileaflet aortic valve. There is no aortic valve stenosis. There is no aortic valve regurgitation. Mitral Valve The mitral valve appears normal. There is trace mitral valve regurgitation. There is no mitral valve stenosis. Pulmonic Valve The pulmonic valve was not well visualized. Tricuspid Valve Normal tricuspid valve structure. There is trace tricuspid valve regurgitation. The pulmonary artery systolic pressure is normal. Great Vessels The aortic annulus, sinuses of valsalva, and asc aorta are normal in size. Venous The inferior vena cava is normal in size and collapses greater than 50% with inspiration. Pericardium/Pleural There is no evidence of pericardial effusion. Prior Study Comparison No prior study available for comparison. Recommendations, Care & Conclusions No obvious valvular pathology seen on this study. Measurements 2D Linear Measurements RVIDd: 2.81 RVIDd Index: 1.71 IVSd: 0.69 0.6-0.9/0.6-1.0 cm LVIDd: 4.39 3.9-5.3/4.2-5.9 cm LVIDd Index: 2.68 2.4-3.2/2.2-3.1 cm/m2 LVIDs: 3.02 2.0-3.6 cm LVPWd: 0.66 0.7-1.1 cm Ao Root: 2.90 2.1-3.5 cm LA Diam: 2.70 2.7-3.8/3.0-4.0 cm LAIDs Index: 1.65 1.5-2.3 cm/m2 LV Mass: 108.49 67-162/88-224 g LV Mass Index: 66.15 43-95/49-115 g/m2 LVOT Diam: 2.00 3.0+(-)1.3 cm 2D Systolic Function EF 4C: 62.00 >55% EF 2C: 55.00 >55% EF BiP: 57.40 >55% Mitral Valve MV Pk E: 0.57 MV PK A: 0.73 MV Decel Time: 106.00 E/A: 0.80 E'Lateral: 12.30 E'Medial: 7.62 E/E' Med: 7.40 E/E' Lat: 4.60 Aortic Valve AoV Pk Luis: 1.28 AoV Mn Luis: 0.97 AoV VTI: 0.19 AoV Pk Grad: 7.00 Aov Mn Grad: 4.00 RAQUEL Cont.VTI: 2.33 LVOT LVOT Pk Luis: 1.00 LVOT Mn Luis: 0.66 LVOT VTI: 0.14 LVOT Pk Grad: 4.00 LVOT Mn Grad: 2.00 LVOT Diam: 2.00 LVOT Area: 3.14 Diastolic Function MV Pk E: 0.57 MV Pk A: 0.73 E/A: 0.80 E'Medial: 7.62 E/E' Med: 7.40 E' Laterial: 12.30 E/E' Lat: 4.60 Tricuspid Valve TR Pk Luis: 2.26 TR Pk Grad: 20.00 RA Press: 3.00 RVSP: 23.00 Great Vessels Aorta Ao Root-2D: 2.90 2.0-3.7 cm Ao Asc: 3.00 2.1-3.4 cm Ao Arch: 2.60 Updated in Other Vendor System with Status of Final King Guadalupe MD electronically signed on 02/19/2021 6:05:00 PM with status of Final
== END ==
LOC: HO.CARD 11:19
PROVIDERS: Visit Provider Internal Medicine Cardiovascular Disease
DX: R00.2 Palpitations (principal)
CPT/HCPCS: 93306

== ENCOUNTER 2021-02-28 11:39 | Outpatient (REF) | payer OTHER, SELFPAY ==
[2021-02-28 13:12] LABS: MANUAL DIFF FLAG NO
[2021-02-28 13:16] LABS: Basophils Absolute Auto 0.1 X10*3/uL (0.0-0.2); Basophils Percent Auto 0.4 % (0-2); Eosinophils Absolute Auto 0.2 X10*3/uL (0.0-0.4); Eosinophils Percent Auto 1.7 % (0-4); Hematocrit 39.2 % (37-47); Hemoglobin 12.8 g/dl (12.0-16.0); Imm Gran Abs Auto 0.08 X10*3/uL (0.00-0.03); Imm Gran Pct Auto 0.6 % (0.0-0.4); Lymphocytes Absolute Auto 2.1 X10*3/uL (1.2-4.9); Lymphocytes Percent Auto 14.9 % (20-40); Mean Corpuscular HGB Conc 32.7 g/dl (31.0-35.0); Mean Platelet Volume 11.5 fL (9.4-12.3); Monocytes Absolute Auto 0.4 X10*3/uL (0.1-1.2); Monocytes Percent Auto 2.5 % (2-11); Neutrophils Absolute Auto 11.4 X10*3/uL (2.0-8.3); Neutrophils Percent Auto 79.9 % (45-73); Platelet Count 382 X10*3/uL (160-400); Red Blood Count 4.26 X10*6/uL (4.20-5.50); White Blood Count 14.2 X10*3/uL (4.8-10.8)
[2021-02-28 13:37] LABS: C Reactive Protein 0.25 mg/dL (< or = 0.50)
== END 2021-02-28 11:40 | disposition home or self-care (01) ==
LOC: HO.10HDL 11:39
PROVIDERS: Visit Provider Internal Medicine
DX: K62.5 Hemorrhage of anus and rectum (principal)
CPT/HCPCS: 36415; 85025; 86140

== ENCOUNTER → 2021-03-14 10:19 | Outpatient (BNVA) | payer OTHER, SELFPAY | PROVIDERS: PCP Internal Medicine; Visit Provider Internal Medicine Cardiovascular Disease | DX: I49.8 Other specified cardiac arrhythmias (principal) | CPT/HCPCS: 99212 ==

== ENCOUNTER 2021-04-24 10:15 | Outpatient (REF) | payer OTHER, SELFPAY ==
[2021-04-24 11:24] LABS: Influenza A PCR NEGATIVE (Negative); Influenza B PCR NEGATIVE (Negative); Resp Syncy Virus RNA Qual PCR NEGATIVE (Negative); SARS COV2 PCR INHOUSE NEGATIVE (Negative)
== END 2021-04-24 10:16 | disposition home or self-care (01) ==
LOC: HO.LNP 10:15
PROVIDERS: Visit Provider Internal Medicine
DX: Z20.822 Contact with and (suspected) exposure to COVID-19 (principal); J02.9 Acute pharyngitis, unspecified; R52 Pain, unspecified
CPT/HCPCS: 0241U

== ENCOUNTER 2021-04-26 10:24 | Outpatient (REF) | payer OTHER, SELFPAY ==
[2021-04-26 13:27] LABS: MANUAL DIFF FLAG NO
[2021-04-26 13:36] LABS: Basophils Absolute Auto 0.1 X10*3/uL (0.0-0.2); Basophils Percent Auto 0.6 % (0-2); Eosinophils Absolute Auto 0.2 X10*3/uL (0.0-0.4); Hematocrit 40.5 % (37-47); Hemoglobin 13.2 g/dl (12.0-16.0); Imm Gran Abs Auto 0.08 X10*3/uL (0.00-0.03); Imm Gran Pct Auto 0.7 % (0.0-0.4); Lymphocytes Absolute Auto 2.6 X10*3/uL (1.2-4.9); Lymphocytes Percent Auto 24.1 % (20-40); Mean Corpuscular HGB Conc 32.6 g/dl (31.0-35.0); Mean Corpuscular Hemoglobin 30.1 pg (27.0-33.0); Mean Corpuscular Volume 92.3 fL (80-98); Mean Platelet Volume 11.4 fL (9.4-12.3); Monocytes Absolute Auto 0.3 X10*3/uL (0.1-1.2); Neutrophils Absolute Auto 7.6 X10*3/uL (2.0-8.3); Neutrophils Percent Auto 69.6 % (45-73); Platelet Count 406 X10*3/uL (160-400); Red Blood Count 4.39 X10*6/uL (4.20-5.50); Red Cell Distribution Width 12.2 % (11.0-16.0); White Blood Count 10.9 X10*3/uL (4.8-10.8)
[2021-04-26 14:40] LABS: Alanine Aminotransferase 14 U/L (0-31); Albumin Level 4.7 g/dL (3.5-5.0); Alkaline Phosphatase 85 U/L (39-117); Anion Gap 13 (12-20); Aspartate Amino Transferase 17 U/L (5-31); Bilirubin Total 0.5 mg/dL (0.0-1.0); Blood Urea Nitrogen 7 mg/dL (9-16); C Reactive Protein 0.21 mg/dL (< or = 0.50); Calcium 9.7 mg/dL (8.4-10.2); Carbon Dioxide 27 mmol/L (22-29); Chloride 104 mmol/L (96-108); Estimated Glomerular Filt Rate > 60; Glucose Random 87 mg/dL (60-115); Lactate Dehydrogenase 131 U/L (122-220); Potassium 4.5 mmol/L (3.3-5.1); Sodium 139 mmol/L (135-145)
[2021-04-27 09:12] LABS: Lyme Abs Screen <0.90 index
== END 2021-04-26 10:25 | disposition home or self-care (01) ==
LOC: HO.10HDL 10:24
PROVIDERS: Visit Provider Internal Medicine
DX: K62.5 Hemorrhage of anus and rectum (principal)
CPT/HCPCS: 36415; 80053; 83615; 85025; 86140; 86617; 86618

== ENCOUNTER → 2021-09-18 09:11 | Outpatient (BNVA) | payer OTHER, SELFPAY | PROVIDERS: PCP Internal Medicine; Referring Provider Internal Medicine; Visit Provider Internal Medicine Cardiovascular Disease | DX: I49.8 Other specified cardiac arrhythmias (principal) | CPT/HCPCS: 93005; 99212 ==

== ENCOUNTER → 2021-09-27 11:21 | Outpatient (REF) | payer OTHER, SELFPAY ==
--- NOTE | 2021-09-27 11:25 | HM_ITS ---
Total monitoring time 3 days and 20 hours. Underlying rhythm is sinus. Minimum heart rate 57/Min. Maximum 136/Min. Average 81/Min. No atrial fibrillation or flutter or AV blocks or pauses. Very rare supraventricular ectopy. One brief episode listed as supraventricular episode for 16 beats could be sinus tachycardia. No patient events. MTDD
== END ==
LOC: HO.CARD 11:21
PROVIDERS: PCP Internal Medicine; Visit Provider Internal Medicine Cardiovascular Disease
DX: R42 Dizziness and giddiness (principal)
CPT/HCPCS: 93242

== ENCOUNTER 2021-12-31 09:40 | Outpatient (REF) | payer OTHER, SELFPAY | END 2021-12-31 09:41 | disposition home or self-care (01) | LOC: HO.10HDL 09:40 | PROVIDERS: Visit Provider Internal Medicine | DX: Z13.89 Encounter for screening for other disorder (principal) ==

== ENCOUNTER 2022-01-02 10:27 | Outpatient (REF) | payer OTHER, SELFPAY ==
[2022-01-02 10:49] LABS: MANUAL DIFF FLAG NO
[2022-01-02 11:52] LABS: Basophils Absolute Auto 0.1 X10*3/uL (0.0-0.2); Basophils Percent Auto 0.7 % (0-2); Eosinophils Absolute Auto 0.2 X10*3/uL (0.0-0.4); Eosinophils Percent Auto 2.1 % (0-4); Hematocrit 37.6 % (37.0-47.0); Hemoglobin 12.6 g/dl (12.0-16.0); Imm Gran Abs Auto 0.04 X10*3/uL (0.00-0.03); Imm Gran Pct Auto 0.3 % (0.0-0.4); Lymphocytes Absolute Auto 2.7 X10*3/uL (1.2-4.9); Lymphocytes Percent Auto 23.8 % (20-40); Mean Corpuscular HGB Conc 33.5 g/dl (31.0-35.0); Mean Corpuscular Hemoglobin 30.7 pg (27.0-33.0); Mean Corpuscular Volume 91.7 fL (80.0-98.0); Mean Platelet Volume 11.6 fL (9.4-12.3); Monocytes Absolute Auto 0.4 X10*3/uL (0.1-1.2); Monocytes Percent Auto 3.4 % (2-11); Neutrophils Percent Auto 69.7 % (45-73); Platelet Count 336 X10*3/uL (160-400); Red Cell Distribution Width 11.8 % (11.0-16.0); White Blood Count 11.5 X10*3/uL (4.8-10.8)
[2022-01-02 12:41] LABS: Alanine Aminotransferase 10 U/L (0-31); Albumin Level 4.2 g/dL (3.5-5.0); Alkaline Phosphatase 79 U/L (39-117); Anion Gap 11 (12-20); Aspartate Amino Transferase 16 U/L (5-31); Bilirubin Total 0.7 mg/dL (0.0-1.0); Blood Urea Nitrogen 11 mg/dL (9-16); C Reactive Protein 0.45 mg/dL (< or = 0.50); Calcium 9.5 mg/dL (8.4-10.2); Carbon Dioxide 26 mmol/L (22-29); Chloride 104 mmol/L (96-108); Estimated Glomerular Filt Rate > 60; Glucose Random 99 mg/dL (60-115); Potassium 4.4 mmol/L (3.3-5.1); Sodium 137 mmol/L (135-145); Total Protein 7.2 g/dL (6.5-8.0)
== END 2022-01-02 10:28 | disposition home or self-care (01) ==
LOC: HO.LAB 10:27
PROVIDERS: PCP Internal Medicine; Visit Provider Internal Medicine
DX: E28.2 Polycystic ovarian syndrome (principal); L70.9 Acne, unspecified
CPT/HCPCS: 36415; 80053; 85025; 86140

== ENCOUNTER 2022-01-21 17:42 | Outpatient (REF) | payer OTHER, SELFPAY ==
[2022-01-21 18:51] LABS: Influenza A PCR NEGATIVE (Negative); Influenza B PCR NEGATIVE (Negative); Resp Syncy Virus RNA Qual PCR NEGATIVE (Negative); SARS COV2 PCR INHOUSE NEGATIVE (Negative)
== END 2022-01-21 17:43 | disposition home or self-care (01) ==
LOC: HO.LNP 17:42
PROVIDERS: Visit Provider Internal Medicine
DX: Z20.822 Contact with and (suspected) exposure to COVID-19 (principal)
CPT/HCPCS: 0241U

== ENCOUNTER → 2022-03-19 13:42 | Outpatient (BNVA) | payer OTHER, SELFPAY | PROVIDERS: PCP Internal Medicine; Referring Provider Internal Medicine; Visit Provider Internal Medicine Cardiovascular Disease | DX: I49.8 Other specified cardiac arrhythmias (principal) | CPT/HCPCS: 99212 ==

== ENCOUNTER 2022-06-21 08:50 | Emergency (ER) | payer OTHER, SELFPAY ==
--- NOTE | ~2022-06-21 | CT_ITS ---
EXAMINATION: CT CHEST WITHOUT CONTRAST CLINICAL INFORMATION: Right shoulder and upper back pain. Tachycardia. COMPARISON: Previous chest x-ray September 2020 TECHNIQUE: Multidetector volumetric CT imaging of the chest was done. Axial MIP volume rendering provided. Sagittal and coronal reformatted images were obtained. This CT examination was performed using dose optimization techniques as appropriate, variously including the following: *Automated exposure control *Adjustment of mA and/or kV according to patient size (this includes techniques or standardized protocols for targeted exams where dose is matched to indication/reason for exam; i.e. extremities or head) *Use of iterative reconstruction technique DLP: 2-4 mGy-cm FINDINGS: SENIOR RESERVOIR ENGINEER: Unremarkable LUNGS: The lungs are clear with no evidence of inflammation or nodules. MEDIASTINUM: The mediastinum is normal. CORONARY ARTERY CALCIFICATION: None visualized on this study. PLEURA: There is no pleural effusion. No pleural mass or thickening. AXILLA: No lymphadenopathy. UPPER ABDOMEN: See abdominal and pelvic CT report from the same day OSSEOUS STRUCTURES: Unremarkable. CT/CT chest wo IV con IMPRESSION: Unremarkable examination. Fleischner guidelines were followed.
--- NOTE | ~2022-06-21 | CT_ITS ---
EXAMINATION: CT ABDOMEN AND PELVIS WITHOUT CONTRAST CLINICAL INFORMATION: Abdominal pain. History of kidney stones. COMPARISON: Previous abdominal ultrasound from earlier the same day and CT of the abdomen and pelvis January 2021 TECHNIQUE: Multidetector volumetric imaging was performed from the superior aspect of the liver through the pubic symphysis. Sagittal and coronal reformatted images were obtained on the technologist's workstation. This CT examination was performed using dose optimization techniques as appropriate, variously including the following: *Automated exposure control *Adjustment of mA and/or kV according to patient size (this includes techniques or standardized protocols for targeted exams where dose is matched to indication/reason for exam; i.e. extremities or head) *Use of iterative reconstruction technique DLP: 487 mGy-cm FINDINGS: LUNG BASES: The visualized lung bases are unremarkable. LIVER, GALLBLADDER, AND BILIARY TREE: The liver is normal in size, shape, and attenuation. No focal hepatic lesion or biliary ductal dilatation is present. The gallbladder is unremarkable with no evidence of radiopaque gallstones, gallbladder wall thickening, or obvious pericholecystic inflammatory changes. PANCREAS: Unremarkable. SPLEEN: Unremarkable. ADRENAL GLANDS: Unremarkable. KIDNEYS AND URETERS: The kidneys are normal in size, shape, and attenuation. No hydronephrosis, hydroureter, or calculi seen. No perinephric stranding. BLADDER: Unremarkable. GASTROINTESTINAL TRACT: The small and large bowel are unremarkable. The appendix is unremarkable. ABDOMINAL WALL: No significant hernia is appreciated. LYMPH NODES: Normal. VASCULAR: Unremarkable. PELVIC VISCERA: There is a new IUD in the uterus. The left ovary is prominent. There are left ovarian cysts, 2 largest cysts measuring approximately 2 cm. There is a calcification anterior to the uterine fundus that appears unchanged. No ascites. OSSEOUS STRUCTURES: Unremarkable. CT/CT abdomen pelvis wo IV con IMPRESSION: No renal stone or hydronephrosis. Normal-appearing liver. No focal liver lesion appreciated. Lesion question by ultrasound may represent prominent fat in the falciform ligament. New IUD in the uterus in satisfactory position. Prominent left ovary and multiple left ovarian cysts. Fleischner guidelines were followed.
--- NOTE | ~2022-06-21 | US_ITS ---
EXAMINATION: US ABDOMEN LIMITED CLINICAL INFORMATION: Right upper quadrant pain radiating to the shoulder. COMPARISON: CT of January 23, 2021 TECHNIQUE: Real-time imaging of the right upper quadrant abdominal viscera. FINDINGS: PANCREAS: Normal. No abnormal mass or peripancreatic inflammatory changes seen. LIVER: Within the left lobe of liver there is a mildly hyperechoic lesion present adjacent to the capsule with no subcapsular fluid collection identified. This measures approximately 1.5 x 1.8 x 1.2 cm in size and may represent a hemangioma or focal nodular hyperplasia. Malignancy at this age would be unusual. Hepatocellular adenoma can also be seen in females taking estrogen containing medications. Parenchymal echogenicity is normal. There is no intrahepatic biliary duct dilatation seen. GALLBLADDER: Normal. The gallbladder is physiologically distended without evidence of stones, sludge, polyps, wall thickening or pericholecystic fluid. COMMON BILE DUCT: Normal in caliber measuring 0.3 cm in diameter. RIGHT KIDNEY: Normal. No hydronephrosis. No renal calculi or focal parenchymal lesions. The kidney measures 11.1 cm in maximum dimension. FREE FLUID: None. US/US abdomen limited IMPRESSION: No evidence of acute cholecystitis. 1.5 x 1.8 x 1.2 cm left lobe liver mildly hyperechoic lesion which is homogeneous in echotexture. This may represent a hemangioma or possible focal nodular hyperplasia. No evidence of hemorrhage or abnormal subcapsular fluid collection is appreciated.
[2022-06-21 08:52] VITALS: PULSE 100; RESP 18; TEMP 36.8; O2SAT 100; BMI 25.7
[2022-06-21 08:55] VITALS: BP 137/88
--- NOTE | 2022-06-21 09:59 | PC.NURSE ---
pt came to triage and stated that her abd pain has subsided but she continues to have rt shoulder pain, pt states she isnt sure if she wants to wait because its just rt shoulder pain. she is considering calling her pcp.
--- NOTE | 2022-06-21 10:21 | ED.GENADULT ---
HPI - General Adult General Chief complaint: Abdominal Pain Stated complaint: shoulder pain/sharp stomach pains Time Seen by Provider: 06/21/22 10:21 Source: patient Mode of arrival: ambulatory Limitations: no limitations History of Present Illness HPI narrative: Patient is a 36 year old assigned female at with a history of POTS and kidney stones presenting to the emergency department today with right shoulder pain and right upper quadrant abdominal pain. Patient states that yesterday she started having right shoulder pain and then she had a moment of sharp right upper quadrant abdominal pain and right flank pain. Patient states that once she sat in the waiting room for a bit, the abdominal and flank pain resolved but her right shoulder is still achy. Patient denies any current dizziness, lightheadedness, abdominal pain, nausea, vomiting, fever, chills, blurry vision, double vision, loss of vision, chest pain, difficulty breathing, shortness of breath, back pain, night sweats, pain with urination, increased urinary frequency, increased urinary urgency, blood in her urine or stool, syncope or a near syncopal episode, recent trauma or falls, bowel incontinence, bladder incontinence, bowel retention, bladder retention, or any other complaints at this time. Onset (ago): hour(s) Location: abdomen (resolved), right and upper extremity (shoulder) Severity: mild Severity scale (1-10): 2 Quality: dull Relieving factors: none Exacerbating factors: none Associated symptoms: denies other symptoms Treatments prior to arrival: none Related Data Home Medications Medication Instructions Recorded Confirmed buspirone 5 mg tablet 5 mg PO BID 03/19/22 03/19/22 metoprolol succinate 25 mg 25 mg PO DAILY PRN 03/19/22 03/19/22 tablet,extended release 24 hr sodium chloride 1 gram tablet 1 g PO BID 03/19/22 03/19/22 spironolactone 25 mg tablet 25 mg PO DAILY 03/19/22 03/19/22 Allergies Allergy/AdvReac Type Severity Reaction Status Date / Time seafood Allergy Angioedema Verified 06/21/22 08:51 Review of Systems Constitutional: Constitutional: Reports no additional constitutional complaints, Denies chills, Denies fever(s) and Denies night sweats Eyes: Eyes: Reports no additional eye complaints, Denies blurry vision, Denies change in vision, Denies diplopia, Denies eye discharge, Denies loss of vision and Denies eye pain ENT: Denies dizziness Cardiovascular: Cardiovascular: Reports no additional cardiovascular complaints, Denies chest pain, Denies lightheadedness, Denies Loss of Consciousness and Denies dyspnea Respiratory: Respiratory: Reports no additional respiratory complaints and Denies dyspnea Gastrointestinal: Gastrointestinal: Reports no additional gastrointestinal complaints, Denies abdominal pain, Denies melena, Denies hematochezia, Denies change in bowel habits and Denies change in stool character Genitourinary: Genitourinary: Denies hematuria, Denies urinary frequency, Denies dysuria, Denies urinary incontinence, Denies urinary hesitancy and Denies urinary urgency Musculoskeletal: Musculoskeletal: Reports no additional musculoskeletal complaints, Denies numbness and Denies tingling Comments: right shoulder pain Neurologic: Denies dizziness, Denies loss of vision, Denies numbness and Denies tingling Psychiatric: Psychiatric: Reports no additional psychiatric complaints Endocrine: Endocrine: Reports no additional endocrine complaints Hematologic/Lymphatic: Hematologic/Lymphatic: Reports no additional hematologic/lymphatic complaints Allergic/Immunologic: Allergic/Immunologic: Reports no additional allergic/immunologic complaints [facility] Past Medical History Attestation statement: The following information was validated with the patient. Source: old records reviewed Medical History No significant past medical history Surgical History History of hemorrhoidectomy History of wisdom tooth extraction Hx of lithotripsy Family History Family History Maternal Grandmother History of colon cancer Father HTN (hypertension) Mother HTN (hypertension) Paternal Uncle Vasovagal episode Social History Social History Are you a primary animal care assistant to a significant other at home: No Do you presently have visiting nurse or other home services: No Alcohol intake: never Patient Tobacco Use Status: Never used Tobacco Advance Directives: No Advance Directives Information Provided: No Physical Exam ED Vital Signs: Vital Signs - 24 hr 06/21/22 08:52 06/21/22 08:55 06/21/22 14:42 Temperature 98.2 F 98.8 F Pulse Rate 100 98 Respiratory Rate 18 16 Blood Pressure 137/88 113/76 Pulse Oximetry 100 98 Oxygen Delivery Method Room Air Room Air BMI result Body Mass Index 25.7 Const General: cooperative, no acute distress, alert and awake Nutritional Appearance: well nourished Orientation/consciousness: patient oriented x3 Limitations: no limitations HENMT Head: Yes normal to inspection and Yes atraumatic Ears: hearing grossly normal bilaterally and external ears normal General nose exam: Normal external nose present, no nasal discharge noted and no epistaxis Face and sinus: Yes normal facial exam, No abrasion and No laceration Mouth: Normal oral and palatal mucosa present, no drooling and no muffled voice Eyes General: appearance normal, both eyes and all related structures Periorbital: periorbital findings normal Eyelids: Yes eyelids normal Conjunctivae: conjunctivae normal Pupils: Equal, round and reactive pupils present EOM: EOMs intact bilaterally Neck Neck: Yes normal visual inspection, Yes full ROM and Yes no lymphadenopathy Chest Chest palpation & inspection: normal inspection of the chest Resp Effort & Inspection: normal respiratory effort and able to speak in complete sentences Auscultation: clear to auscultation bilaterally Cardio Rate: regular rate Rhythm: regular rhythm GI Inspection: Yes normal to inspection Palpation (GI): Soft to palpation, not firm, nontender, no guarding and not rigid Neuro General: patient oriented x3 and moves all extremities Cranial nerves: Yes Equal, round and reactive pupils present Cognition (Neuro): normal cognition Motor exam (neuro): 5/5 motor strength present throughout Sensory Exam: Normal double simultaneous stimulation for sensation Coordination: [id number] test normal Extrem General: Yes normal to inspection, Yes full ROM and Yes capillary refill normal Psych Appearance: grossly normal Mental Status: mental status grossly normal Affect: normal affect Attitude: cooperative Thought process: Normal thought process present Thought content: Normal thought content present Insight: Good insight present (Psych) Medical Decision Making [facility] Narrative Medical decision making narrative: Patient is a 36 year old assigned female at with a history of POTS and kidney stones presenting to the emergency department today with right shoulder pain and resolved right flank and abdominal pain. Patient's physical exam was unremarkable. Patient's blood work was unremarkable. Patient's urine showed trace blood and trace leuks with no bacteria and 0-5 WBCs. Patient's abdominal US showed a possible hyperechoic homogeneous lesion of the liver. Patient's chest CT was unremarkable. Patient's abdominal CT was also unremarkable noting the previously seen lesion on US was likely prominent fat in the falciform ligament. Patient's clinical presentation at this time is most consistent with the recent passing of a kidney stone and unrelated right shoulder pain. I explained my physical exam findings as well as all test results to the patient and the patient's . I answered all questions asked by the patient and the patient's . I stressed the importance of the patient taking her medication as prescribed. I stressed the importance of the patient following up with her primary care provider. I stressed the importance of the patient returning to the emergency department immediately if her symptoms were to worsen or if she were to develop any dizziness, shortness of breath, difficulty breathing, chest pain, blurry vision, loss of vision, nausea, vomiting, abdominal pain, fever, chills, back pain, or any other complaints. Patient and the patient's verbalized agreement and understanding with this treatment plan and discharge. Medical Records Medical records reviewed: Yes I reviewed the patient's medical records. Lab Data Lab results reviewed: Yes I reviewed the patient's lab results. Result diagrams: 06/21/22 11:09 06/21/22 11:09 Labs: Lab Results 06/21/22 06/21/22 06/21/22 Range/Units 11:09 11:09 11:09 WBC 10.7 (4.8-10.8) X10*3/uL RBC 4.34 (4.20-5.50) X10*6/uL Hgb 13.5 (12.0-16.0) g/dl Hct 39.1 (37.0-47.0) % MCV 90.1 (80.0-98.0) fL MCH 31.1 (27.0-33.0) pg MCHC 34.5 (31.0-35.0) g/dl RDW 11.6 (11.0-16.0) % Plt Count 345 (160-400) X10*3/uL MPV 10.4 (9.4-12.3) fL Immature Gran % (Auto) 0.4 (0.0-0.4) % Neut % (Auto) 80.6 H (45-73) % Lymph % (Auto) 13.3 L (20-40) % [place] % (Auto) 3.8 (2-11) % Eos % (Auto) 1.2 (0-4) % Baso % (Auto) 0.7 (0-2) % Lymph # (Auto) 1.4 (1.2-4.9) X10*3/uL [place]eman # (Auto) 0.4 (0.1-1.2) X10*3/uL Eos # (Auto) 0.1 (0.0-0.4) X10*3/uL Baso # (Auto) 0.1 (0.0-0.2) X10*3/uL Abs Immat Gran (auto) 0.04 H (0.00-0.03) X10*3/uL Absolute Neuts (auto) 8.7 H (2.0-8.3) x10*3/uL Absolute Nucleated RBC 0.000 (0.0-0.012) X10*3/uL Nucleated RBC % (auto) 0.0 (0.0-0.2) /100WBC Sodium 139 (135-145) mmol/L Potassium 4.3 (3.3-5.1) mmol/L Chloride 102 (96-108) mmol/L Carbon Dioxide 25 (22-29) mmol/L Anion Gap 16 (12-20) BUN 8 L (9-16) mg/dL Creatinine 0.77 (0.5-1.4) mg/dL Estim Creat Clear Calc 92.9 Estimated GFR > 60 Random Glucose 93 (60-115) mg/dL Calcium 9.7 (8.4-10.2) mg/dL Total Bilirubin 0.9 (0.0-1.0) mg/dL AST 15 (5-31) U/L ALT 8 (0-31) U/L Alkaline Phosphatase 83 (39-117) U/L Total Protein 8.2 H (6.5-8.0) g/dL Albumin 4.8 (3.5-5.0) g/dL Beta HCG, Quant < 2 mIU/mL Urine Color Urine Appearance Urine pH (5.0-9.0) Ur Specific [place] (1.005-1.025) Urine Protein (Neg-Trace) mg/dL Urine Glucose (UA) (Negative) mg/dL Urine Ketones (Negative) mg/dL Urine Blood (Negative) Urine Nitrite (Negative) Ur Leukocyte Esterase (Negative) Urine RBC (0-2) /HPF Urine WBC (0-5) /HPF Ur Squamous Epith Cells (0-2) /HPF Urine Bacteria (None Seen) Hyaline Casts (0-2) /LPF 06/21/ Range/Units 12:12 WBC (4.8-10.8) X10*3/uL RBC (4.20-5.50) X10*6/uL Hgb (12.0-16.0) g/dl Hct (37.0-47.0) % MCV (80.0-98.0) fL MCH (27.0-33.0) pg MCHC (31.0-35.0) g/dl RDW (11.0-16.0) % Plt Count (160-400) X10*3/uL MPV (9.4-12.3) fL Immature Gran % (Auto) (0.0-0.4) % Neut % (Auto) (45-73) % Lymph % (Auto) (20-40) % Hardeman % (Auto) (2-11) % Eos % (Auto) (0-4) % Baso % (Auto) (0-2) % Lymph # (Auto) (1.2-4.9) X10*3/uL Hardeman # (Auto) (0.1-1.2) X10*3/uL Eos # (Auto) (0.0-0.4) X10*3/uL Baso # (Auto) (0.0-0.2) X10*3/uL Abs Immat Gran (auto) (0.00-0.03) X10*3/uL Absolute Neuts (auto) (2.0-8.3) x10*3/uL Absolute Nucleated RBC (0.0-0.012) X10*3/uL Nucleated RBC % (auto) (0.0-0.2) /100WBC Sodium (135-145) mmol/L Potassium (3.3-5.1) mmol/L Chloride (96-108) mmol/L Carbon Dioxide (22-29) mmol/L Anion Gap (12-20) BUN (9-16) mg/dL Creatinine (0.5-1.4) mg/dL Estim Creat Clear Calc Estimated GFR Random Glucose (60-115) mg/dL Calcium (8.4-10.2) mg/dL Total Bilirubin (0.0-1.0) mg/dL AST (5-31) U/L ALT (0-31) U/L Alkaline Phosphatase (39-117) U/L Total Protein (6.5-8.0) g/dL Albumin (3.5-5.0) g/dL Beta HCG, Quant mIU/mL Urine Color Yellow Urine Appearance Clear Urine pH 7.0 (5.0-9.0) Ur Specific [place] <= 1.005 (1.005-1.025) Urine Protein Negative (Neg-Trace) mg/dL Urine Glucose (UA) Negative (Negative) mg/dL Urine Ketones Negative (Negative) mg/dL Urine Blood Trace H (Negative) Urine Nitrite Negative (Negative) Ur Leukocyte Esterase Trace H (Negative) Urine RBC 0-2 (0-2) /HPF Urine WBC 0-5 (0-5) /HPF Ur Squamous Epith Cells 3-5 (0-2) /HPF Urine Bacteria None Seen (None Seen) Hyaline Casts 0-2 (0-2) /LPF Imaging Data US - abdomen: Attestation: I personally reviewed and interpreted this imaging study as follows: My impression: Possible liver lesion. Radiologist's impression: EXAMINATION: US ABDOMEN LIMITED CLINICAL INFORMATION: Right upper quadrant pain radiating to the shoulder. COMPARISON: CT of January 23, 2021 TECHNIQUE: Real-time imaging of the right upper quadrant abdominal viscera. FINDINGS: PANCREAS: Normal. No abnormal mass or peripancreatic inflammatory changes seen. LIVER: Within the left lobe of liver there is a mildly hyperechoic lesion present adjacent to the capsule with no subcapsular fluid collection identified. This measures approximately 1.5 x 1.8 x 1.2 cm in size and may represent a hemangioma or focal nodular hyperplasia. Malignancy at this age would be unusual. Hepatocellular adenoma can also be seen in females taking estrogen containing medications. Parenchymal echogenicity is normal. There is no intrahepatic biliary duct dilatation seen. GALLBLADDER: Normal. The gallbladder is physiologically distended without evidence of stones, sludge, polyps, wall thickening or pericholecystic fluid. COMMON BILE DUCT: Normal in caliber measuring 0.3 cm in diameter. RIGHT KIDNEY: Normal. No hydronephrosis. No renal calculi or focal parenchymal lesions. The kidney measures 11.1 cm in maximum dimension. FREE FLUID: None. US/US abdomen limited IMPRESSION: No evidence of acute cholecystitis. ? 1.5 x 1.8 x 1.2 cm left lobe liver mildly hyperechoic lesion which is homogeneous in echotexture. This may represent a hemangioma or possible focal nodular hyperplasia. No evidence of hemorrhage or abnormal subcapsular fluid collection is appreciated. Dictated By: Jaron Glasgow MD Signed By: Electronically signed by Jaron Glasgow MD 06/21/[address] scan - abdomen: Attestation: I personally reviewed and interpreted this imaging study as follows: My impression: No acute process. Radiologist's impression: EXAMINATION: CT ABDOMEN AND PELVIS WITHOUT CONTRAST? CLINICAL INFORMATION: Abdominal pain. History of kidney stones.? COMPARISON: Previous abdominal ultrasound from earlier the same day and CT of the abdomen and pelvis January 2021? TECHNIQUE: Multidetector volumetric imaging was performed from the superior aspect of the liver through the pubic symphysis. Sagittal and coronal reformatted images were obtained on the technologist's workstation.? This CT examination was performed using dose optimization techniques as appropriate, variously including the following: *Automated exposure control *Adjustment of mA and/or kV according to patient size (this includes techniques or standardized protocols for targeted exams where dose is matched to indication/reason for exam; i.e. extremities or head) *Use of iterative reconstruction technique DLP: 487 mGy-cm FINDINGS: LUNG BASES: The visualized lung bases are unremarkable.? LIVER, GALLBLADDER, AND BILIARY TREE: The liver is normal in size, shape, and attenuation. No focal hepatic lesion or biliary ductal dilatation is present. The gallbladder is unremarkable with no evidence of radiopaque gallstones, gallbladder wall thickening, or obvious pericholecystic inflammatory changes.? PANCREAS: Unremarkable.? SPLEEN: Unremarkable.? ADRENAL GLANDS: Unremarkable.? KIDNEYS AND URETERS: The kidneys are normal in size, shape, and attenuation. No hydronephrosis, hydroureter, or calculi seen. No perinephric stranding. ? BLADDER: Unremarkable.? GASTROINTESTINAL TRACT: The small and large bowel are unremarkable. The appendix is unremarkable.? ABDOMINAL WALL: No significant hernia is appreciated.? LYMPH NODES: Normal. VASCULAR: Unremarkable. PELVIC VISCERA: There is a new IUD in the uterus. The left ovary is prominent. There are left ovarian cysts, 2 largest cysts measuring approximately 2 cm. There is a calcification anterior to the uterine fundus that appears unchanged. No ascites. OSSEOUS STRUCTURES: Unremarkable.? CT/CT abdomen pelvis wo IV con IMPRESSION: No renal stone or hydronephrosis. Normal-appearing liver. No focal liver lesion appreciated. Lesion question by ultrasound may represent prominent fat in the falciform ligament. New IUD in the uterus in satisfactory position. Prominent left ovary and multiple left ovarian cysts. ? Fleischner guidelines were followed. Dictated By: Shannan Quiñones MD Signed By: Electronically signed by Shannan Quiñones MD 06/21/[address] scan - chest: Attestation: I personally reviewed and interpreted this imaging study as follows: My impression: No acute process. Radiologist's impression: EXAMINATION: CT CHEST WITHOUT CONTRAST CLINICAL INFORMATION: Right shoulder and upper back pain. Tachycardia.? COMPARISON: Previous chest x-ray September 2020? TECHNIQUE: Multidetector volumetric CT imaging of the chest was done. Axial MIP volume rendering provided. Sagittal and coronal reformatted images were obtained.? This CT examination was performed using dose optimization techniques as appropriate, variously including the following: *Automated exposure control *Adjustment of mA and/or kV according to patient size (this includes techniques or standardized protocols for targeted exams where dose is matched to indication/reason for exam; i.e. extremities or head) *Use of iterative reconstruction technique DLP: 2-4 mGy-cm FINDINGS: PERMIT REVIEW ASSISTANT: Unremarkable LUNGS: The lungs are clear with no evidence of inflammation or nodules. ? MEDIASTINUM: The mediastinum is normal.? CORONARY ARTERY CALCIFICATION: None visualized on this study. PLEURA: There is no pleural effusion. No pleural mass or thickening.? AXILLA: No lymphadenopathy.? UPPER ABDOMEN: See abdominal and pelvic CT report from the same day OSSEOUS STRUCTURES: Unremarkable.? CT/CT chest wo IV con IMPRESSION: Unremarkable examination.? ? Fleischner guidelines were followed. Dictated By: Shannan Quiñones MD Signed By: Electronically signed by Shannan Quiñones MD 06/21/22 5655 Discharge Plan Discharge Clinical Impression: Acute shoulder pain, History of kidney stones Patient Disposition: Home, Self-Care Instructions: Kidney Stones (ED), Shoulder Pain (ED) Additional Instructions: Follow up with your primary care provider. Return to the emergency department immediately if your symptoms worsen or if you develop any dizziness, shortness of breath, difficulty breathing, chest pain, blurry vision, loss of vision, nausea, vomiting, abdominal pain, fever, chills, back pain, or any other complaints. Prescriptions: No Action buspirone 5 mg tablet 5 mg PO BID metoprolol succinate 25 mg tablet extended release 24 hr 25 mg PO DAILY PRN spironolactone 25 mg tablet 25 mg PO DAILY sodium chloride 1 gram tablet 1 g PO BID Referrals: [facility] [Provider Group] (Call to establish and follow up with an orthopedic provider. ) Wayne Montelongo MD [Primary Care Provider] - Stand Alone Forms: Work/School Release Interventions: ED Discharge Assessment Last Done: 06/21/22 14:59 Discharge Date/Time: 06/21/22 15:00 Print Language: Citizen Of [place]
[2022-06-21 11:16] LABS: MANUAL DIFF FLAG NO
[2022-06-21 11:20] LABS: Basophils Absolute Auto 0.1 X10*3/uL (0.0-0.2); Basophils Percent Auto 0.7 % (0-2); Eosinophils Absolute Auto 0.1 X10*3/uL (0.0-0.4); Eosinophils Percent Auto 1.2 % (0-4); Hematocrit 39.1 % (37.0-47.0); Hemoglobin 13.5 g/dl (12.0-16.0); Imm Gran Abs Auto 0.04 X10*3/uL (0.00-0.03); Imm Gran Pct Auto 0.4 % (0.0-0.4); Lymphocytes Absolute Auto 1.4 X10*3/uL (1.2-4.9); Lymphocytes Percent Auto 13.3 % (20-40); Mean Corpuscular HGB Conc 34.5 g/dl (31.0-35.0); Mean Corpuscular Hemoglobin 31.1 pg (27.0-33.0); Mean Corpuscular Volume 90.1 fL (80.0-98.0); Mean Platelet Volume 10.4 fL (9.4-12.3); Monocytes Absolute Auto 0.4 X10*3/uL (0.1-1.2); Monocytes Percent Auto 3.8 % (2-11); Neutrophils Absolute Auto 8.7 x10*3/uL (2.0-8.3); Neutrophils Percent Auto 80.6 % (45-73); Platelet Count 345 X10*3/uL (160-400); Red Blood Count 4.34 X10*6/uL (4.20-5.50); Red Cell Distribution Width 11.6 % (11.0-16.0); White Blood Count 10.7 X10*3/uL (4.8-10.8)
[2022-06-21 11:41] LABS: Alanine Aminotransferase 8 U/L (0-31); Albumin Level 4.8 g/dL (3.5-5.0); Alkaline Phosphatase 83 U/L (39-117); Anion Gap 16 (12-20); Aspartate Amino Transferase 15 U/L (5-31); Bilirubin Total 0.9 mg/dL (0.0-1.0); Blood Urea Nitrogen 8 mg/dL (9-16); Calcium 9.7 mg/dL (8.4-10.2); Carbon Dioxide 25 mmol/L (22-29); Chloride 102 mmol/L (96-108); Creatinine Clr Calc Pharmacy 92.9; Estimated Glomerular Filt Rate > 60; Glucose Random 93 mg/dL (60-115); Potassium 4.3 mmol/L (3.3-5.1); Sodium 139 mmol/L (135-145); Total Protein 8.2 g/dL (6.5-8.0)
[2022-06-21 11:49] LABS: HCG Quantitative < 2 mIU/mL
[2022-06-21 12:21] LABS: Appearance Urine Clear; Color Urine Yellow; Glucose Urine UA Negative (Negative); Leukocyte Esterase Urine Trace (Negative); Nitrite Urine Negative (Negative); Specific Gravity - Urine <= 1.005 (1.005-1.025); UMIC TRIGGER UACC YES; Urine Blood Trace (Negative); Urine Ketones Negative (Negative); Urine Protein Negative (Neg-Trace)
[2022-06-21 12:24] LABS: Bacteria Urine None Seen (None Seen); Hyaline Casts Urine 0-2 /LPF (0-2); RBC Urine 0-2 /HPF (0-2); WBC Urine 0-5 /HPF (0-5)
[2022-06-21 14:42] VITALS: BP 113/76; PULSE 98; RESP 16; TEMP 37.1; O2SAT 98
== END 2022-06-21 15:00 | disposition home or self-care (01) ==
PROVIDERS: Physician Assistant Medical; Emergency Provider Student in an Organized Health Care Education/Training Program; PCP Internal Medicine
DX: R10.11 Right upper quadrant pain (principal); M25.511 Pain in right shoulder; R00.0 Tachycardia, unspecified; M54.6 Pain in thoracic spine; Z79.899 Other long term (current) drug therapy
CPT/HCPCS: 36415; 71250; 74176; 76705; 80053; 81001; 84702; 85025; 99283; 99284

== ENCOUNTER 2022-09-13 12:12 | Outpatient (REF) | payer OTHER, SELFPAY ==
[2022-09-13 14:20] LABS: Anion Gap 14 (12-20); Blood Urea Nitrogen 10 mg/dL (9-16); C Reactive Protein 0.67 mg/dL (< or = 0.50); Calcium 10.2 mg/dL (8.4-10.2); Carbon Dioxide 27 mmol/L (22-29); Chloride 101 mmol/L (96-108); Estimated Glomerular Filt Rate > 60; Glucose Random 107 mg/dL (60-115); Potassium 4.1 mmol/L (3.3-5.1); Sodium 138 mmol/L (135-145)
[2022-09-13 14:39] LABS: Thyroid Stimulating Hormone 1.12 uIU/mL (0.32-4.0)
== END 2022-09-13 12:13 | disposition home or self-care (01) ==
LOC: HO.10HDL 12:12
PROVIDERS: Visit Provider Internal Medicine
DX: I11.0 Hypertensive heart disease with heart failure (principal); I50.9 Heart failure, unspecified; G90.A Postural orthostatic tachycardia syndrome [POTS]
CPT/HCPCS: 36415; 80048; 82550; 84439; 84443; 86140

== ENCOUNTER 2023-01-01 16:48 | Outpatient (REF) | payer OTHER, SELFPAY ==
[2023-01-01 17:48] LABS: Appearance Urine Turbid; Color Urine Yellow; Glucose Urine UA Negative (Negative); Leukocyte Esterase Urine Moderate (2+) (Negative); Nitrite Urine Negative (Negative); PH 7.5 (5.0-9.0); Specific Gravity - Urine 1.015 (1.005-1.025); UMIC TRIGGER UA YES; Urine Blood Large (3+) (Negative); Urine Ketones Negative (Negative); Urine Protein Trace mg/dL (Neg-Trace)
[2023-01-01 18:10] LABS: Bacteria Urine 1+ (None Seen); Hyaline Casts Urine 0-2 /LPF (0-2)
== END 2023-01-01 16:49 | disposition home or self-care (01) ==
LOC: HO.LAB 16:48
PROVIDERS: PCP Internal Medicine; Visit Provider Internal Medicine
DX: R30.0 Dysuria (principal)
CPT/HCPCS: 81001; 87086

== ENCOUNTER 2023-01-10 17:22 | Emergency (ER) | payer OTHER, SELFPAY ==
--- NOTE | ~2023-01-10 | US_ITS ---
EXAMINATION: TRANSVAGINAL AND TRANSABDOMINAL ULTRASOUND OF THE PELVIS CLINICAL INFORMATION: Right flank pain. COMPARISON: CT from the same date. TECHNIQUE: Real-time scanning of the pelvis is acquired via transabdominal and transvaginal approach. Transvaginal images were obtained for more detailed evaluation of the ovaries. FINDINGS: UTERUS: Anteverted. Normal in size and appearance, measuring 7.1 x 4.5 x 5.4 cm (SAG x AP x TRANS). An IUD is in place. Endometrial thickness is imperceptible around the IUD, likely thin. Trace fluid is present in the cervical canal. Nabothian cysts are noted. A 1.6 cm calcification is seen to the right aspect of the uterine fundus and is of doubtful clinical significance when correlated with findings on the CT . Myometrium: Normal. OVARIES AND ADNEXA: The right ovary is not seen . The left ovary contains 3 discrete simple appearing cysts. The largest of these measures 4.4 x 2.6 x 3.2 cm and contains a small daughter cyst, likely a cumulus oophorus there is scan be seen with impending ovulation. No suspicious adnexal lesions. No suspicious features in the ovarian cyst, likely follicular cysts. Arterial and venous waveforms are present in the left ovary on spectral Doppler evaluation. Left Ovary: 5.4 x 4.8 x 3.8 cm, volume 51.6 mL. FREE FLUID: None. US/US pelvic and transvaginal IMPRESSION: Multiple simple appearing left ovarian cysts measuring up to 4.4 cm in diameter, likely follicular cysts. No suspicious adnexal lesions. No acute findings right ovary is not seen.
--- NOTE | ~2023-01-10 | US_ITS ---
EXAMINATION: TRANSVAGINAL AND TRANSABDOMINAL ULTRASOUND OF THE PELVIS CLINICAL INFORMATION: Right flank pain. COMPARISON: CT from the same date. TECHNIQUE: Real-time scanning of the pelvis is acquired via transabdominal and transvaginal approach. Transvaginal images were obtained for more detailed evaluation of the ovaries. FINDINGS: UTERUS: Anteverted. Normal in size and appearance, measuring 7.1 x 4.5 x 5.4 cm (SAG x AP x TRANS). An IUD is in place. Endometrial thickness is imperceptible around the IUD, likely thin. Trace fluid is present in the cervical canal. Nabothian cysts are noted. A 1.6 cm calcification is seen to the right aspect of the uterine fundus and is of doubtful clinical significance when correlated with findings on the CT . Myometrium: Normal. OVARIES AND ADNEXA: The right ovary is not seen . The left ovary contains 3 discrete simple appearing cysts. The largest of these measures 4.4 x 2.6 x 3.2 cm and contains a small daughter cyst, likely a cumulus oophorus there is scan be seen with impending ovulation. No suspicious adnexal lesions. No suspicious features in the ovarian cyst, likely follicular cysts. Arterial and venous waveforms are present in the left ovary on spectral Doppler evaluation. Left Ovary: 5.4 x 4.8 x 3.8 cm, volume 51.6 mL. FREE FLUID: None. US/US pelvic ovarian doppler IMPRESSION: Multiple simple appearing left ovarian cysts measuring up to 4.4 cm in diameter, likely follicular cysts. No suspicious adnexal lesions. No acute findings right ovary is not seen.
--- NOTE | ~2023-01-10 | CT_ITS ---
EXAMINATION: CT ABDOMEN AND PELVIS WITHOUT CONTRAST CLINICAL INFORMATION: Right-sided flank pain and suprapubic pain. COMPARISON: CT abdomen/pelvis 06/21/2022. TECHNIQUE: Multidetector volumetric imaging was performed from the superior aspect of the liver through the pubic symphysis. Sagittal and coronal reformatted images were obtained on the technologist's workstation. This CT examination was performed using dose optimization techniques as appropriate, variously including the following: *Automated exposure control *Adjustment of mA and/or kV according to patient size (this includes techniques or standardized protocols for targeted exams where dose is matched to indication/reason for exam; i.e. extremities or head) *Use of iterative reconstruction technique DLP: 476 mGy-cm FINDINGS: The lack of intravenous contrast limits evaluation of the solid visceral organs including the liver, spleen, pancreas, and kidneys. LUNG BASES: No focal consolidation or pleural effusion. Micronodule in the left lower lobe (4:48) of doubtful significance in a patient of this age. LIVER, GALLBLADDER, AND BILIARY TREE: Stable focal hypodensity adjacent to the fissure of the falciform ligament (3:27), favored to represent focal fatty infiltration. The noncontrast liver is normal in size, shape and attenuation. No new focal liver observation. The gallbladder is unremarkable with no evidence of radiopaque gallstones, gallbladder wall thickening, or obvious pericholecystic inflammatory changes. PANCREAS: Unremarkable. SPLEEN: Unremarkable. ADRENAL GLANDS: Unremarkable. KIDNEYS AND URETERS: The kidneys are normal in size, shape, and attenuation. No hydronephrosis, hydroureter, or calculi seen. No perinephric stranding. BLADDER: Unremarkable. GASTROINTESTINAL TRACT: The stomach and the small bowel are nondilated. Normal appendix. No pericolonic inflammatory changes or evidence of bowel obstruction. Moderate degree of colonic and rectal stool burden. ABDOMINAL WALL: No significant hernia is appreciated. LYMPH NODES: No lymphadenopathy. VASCULAR: Abdominal aorta is normal in caliber. PELVIC VISCERA: IUD centered in the endometrial cavity. The left ovary is enlarged with multiple simple fluid attenuating cysts versus septated cyst measuring conjunction 4.5 x 3 x 4.5 cm (AP by TB by CC dimensions). The right ovary is not definitely identified. There is redemonstration of a coarse calcification to the right of the urinary bladder (3:63) unchanged. OSSEOUS STRUCTURES: No acute or aggressive appearing osseous abnormalities. CT/CT abdomen pelvis wo IV con IMPRESSION: 1. The left ovary is enlarged with multiple simple fluid attenuating cysts versus septated cyst measuring up to 4.5 cm. The right ovary is not visualized. Recommend further evaluation with an already ordered pelvic ultrasound. 2. Otherwise, no acute intra-abdominal or pelvic abnormalities to explain the patient's symptoms.
[2023-01-10 17:24] VITALS: BP 141/89; PULSE 112; RESP 20; TEMP 36.8; O2SAT 100; BMI 25.7
--- NOTE | 2023-01-10 17:25 | ED_ITS ---
HPI - Abdominal Pain General Chief Complaint: General Medical <MEL Banegas - Last Filed: 01/10/23 17:31> Stated Complaint: ?kidney stone <MEL Banegas - Last Filed: 01/10/23 17:31> Time Seen by Provider: 01/10/23 19:21 <MEL Banegas - Last Filed: 01/10/23 17:31> Source: patient <MEL Bush - Last Filed: 01/10/23 23:06> Mode of arrival: ambulatory <MEL Bush - Last Filed: 01/10/23 23:06> Limitations: no limitations <MEL Bush Last Filed: 01/10/23 23:06> History of Present Illness HPI narrative: 37 year old female with PMH of kidney stones, TURK presents to the ER for evaluation of 2 weeks of diffuse abdominal discomfort and bloating, right flank pain along with increased urinary frequency and chills. Reports initially 2 weeks ago, her main symptom was bloating and stomach discomfort, and it then progressed to flank pain and urinary symptoms. She is currently not experiencing any symptoms. Rates her flank pain a 6/10 when it is present. She called her doctor and was started on empiric antibiotics which she completed yesterday. She states the urinary frequency and bloating are the worst symptoms. She denies fevers , cp, vaginal bleeding, hematuria, fevers, vaginal discharge, pelvic pain or concern for STI. Does not feel like kidney stones. <MEL Bush Last Filed: 01/10/23 23:06> Related Data Home Medications: Home Medications Medication Instructions Recorded Confirmed buspirone 5 mg tablet 5 mg PO BID 03/19/22 03/19/22 metoprolol succinate 25 mg 25 mg PO DAILY PRN 03/19/22 03/19/22 tablet,extended release 24 hr sodium chloride 1 gram tablet 1 g PO BID 03/19/22 03/19/22 spironolactone 25 mg tablet 25 mg PO DAILY 03/19/22 03/19/22 Previous Rx's Medication Instructions Recorded ketorolac 10 mg tablet 10 mg PO TID PRN pain 5 days #15 01/10/23 tabs phenazopyridine 100 mg tablet 200 mg PO TID 2 days #6 tabs 01/10/23 (Pyridium) <MEL Banegas - Last Filed: 01/10/23 17:31> Allergies/Adverse Reactions: Allergies Allergy/AdvReac Type Severity Reaction Status Date / Time seafood Allergy Angioedema Verified 06/21/22 08:51 <MEL Banegas - Last Filed: 01/10/23 17:31> Review of Systems Review of Systems Constitutional : No Weight loss, No Fever, + Chills, No Fatigue, No Malaise Cardiovascular : No Chest Pain, No SOB, No Dyspnea on Exertion, No Orthopnea, No Edema, No Palpitations Respiratory : No Cough, No Sputum, No Wheezing Gastrointestinal : No Nausea, No Vomiting, No Diarrhea, No Constipation, + abdominal Pain, No Hematochezia, No Melena Genitourinary : + Dysuria, + Urinary Frequency, No Hematuria, Musculoskeletal : No joint pain, No Myalgias, No Joint Swelling Skin : No Skin Lesions, No rash Neuro : No Weakness, No Numbness, No Dizziness, No Headache Psych : No Anxiety/Panic, No Depression Endocrine : No Polyuria, No Polydipsia All other systems reviewed and are negative <MEL Bush - Last Filed: 01/10/23 23:06> Yes all other systems are reviewed and are negative <MEL Bush - Last Filed: 01/10/23 23:06> PMFSH Past Medical History Attestation statement: The following information was validated with the patient. <MEL Bush - Last Filed: 01/10/23 23:06> Source: old records reviewed, obtained from family and nursing notes reviewed <MEL Bush Last Filed: 01/10/23 23:06> Medical History: Medical History No significant past medical history <MEL Banegas Last Filed: 01/10/23 17:31> Surgical History: Surgical History History of hemorrhoidectomy History of wisdom tooth extraction Hx of lithotripsy <MEL Banegas - Last Filed: 01/10/23 17:31> Family History Family History: Family History Maternal Grandmother History of colon cancer Father HTN (hypertension) Mother HTN (hypertension) Paternal Uncle Vasovagal episode <MEL Banegas - Last Filed: 01/10/23 17:31> Social History Social History: Social History Are you a primary child care associate to a significant other at home: No Do you presently have visiting nurse or other home services: No Alcohol intake: never Patient Tobacco Use Status: Never used Tobacco Advance Directives: No Advance Directives Information Provided: No <MEL Banegas - Last Filed: 01/10/23 17:31> Physical Exam ED Vital Signs: Vital Signs - 24 hr 01/10/23 17:24 01/10/23 22:21 Temperature 98.3 F 98.4 F Pulse Rate 112 H 95 Respiratory Rate 20 18 Blood Pressure 141/89 H 122/77 Pulse Oximetry 100 100 Oxygen Delivery Method Room Air Room Air BMI result Body Mass Index 25.7 <MEL Banegas - Last Filed: 01/10/23 17:31> Vital Signs - 24 hr 01/10/23 17:24 01/10/23 22:21 Temperature 98.3 F 98.4 F Pulse Rate 112 H 95 Respiratory Rate 20 18 Blood Pressure 141/89 H 122/77 Pulse Oximetry 100 100 Oxygen Delivery Method Room Air Room Air BMI result Body Mass Index 25.7 VSS <MEL Bush - Last Filed: 01/10/23 23:06> Appearance: Alert.? Oriented X3.? No acute distress.? Head: Normocephalic, atraumatic, no step-offs or deformities Neck: Normal inspection.? Neck supple.? CVS: Normal heart rate and rhythm.? Pulses normal.? Respiratory: No respiratory distress.? Breath sounds normal.? Abdomen: Soft and nontender.?Normal bowel sounds X4 quadrants Skin: Skin warm and dry.? Normal skin color.? Normal skin turgor.? Extremities: No lower extremity edema.? No calf ttp. 5/5 strength to bilateral upper and lower extremities Back: No midline tenderness, no C-spine tenderness, full range of motion, no CVA tenderness bilaterally Neuro: Oriented X 3.? No motor deficit.? No sensory deficit. CN 2-12 intact <MEL Bush - Last Filed: 01/10/23 23:06> Course Course Course Narrative: RME - 37 y/o female wtih history of kidney stones, TURK presents to the ER for evaluation of 2 weeks of upper and lower abdominal pain and bloating, right flank pain along with increased urinary frequency and chills. She called her doctor and was started on empiric antibiotics which she completed yesterday. She states the urinary frequency and bloating are the worst symptoms. She denies hematuria, fevers, vaginal discharge, pelvic pain or concern for STI. Does not feel like kidney stones. Plan: lab workup, UA, r/o , CT scan abd/pelvis <MEL Banegas - Last Filed: 01/10/23 17:31> Reevaluation(s) Reevaluation #1: CBC with slight leukocytosis however this appears to be around patient's baseline when compared to previous labs. Chemistry with no acute findings requiring intervention. Patient's beta hCG negative therefore low suspicion for ectopic . UA without infection. CT of the abdomen pelvis with normal appendix, left ovary is enlarged with multiples simple fluid attenuating cyst measuring up to 4.5 cm right ovary is not visualized. Recommend further evaluation with already ordered pelvic ultrasound. Otherwise no acute intra- abdominal or pelvic abnormalities. Ultrasound pelvic and transvaginal with normal flow, no signs of torsion, multiple simple appearing left ovarian cyst measuring up to 4.4 cm in diameter. Initially patient refused Toradol be she says she is not uncomfortable. No pelvic complaints no need for pelvic exam at this time. I did advise her to follow-up with OBGYN. Patient tells me she is comfortable and would like to go home. Tolerating p.o. at time of discharge. Educated patient on diagnosis and treatment plan, answered all question, patient verbalizes understanding. At this time patient will be discharged home, advised to return with new or worsening symptoms. Educated on worrisome signs and symptoms and when to return. At this time I feel comfortable discharge home. <MEL Bush - Last Filed: 01/10/23 23:06> Time: 23:06 <MEL Bush - Last Filed: 01/10/23 23:06> Medical Decision Making Medical Decision Making [facility] Narrative: 37 year old female presents with diffuse abdominal pain, right flank pain, frequency, bloating, and chills for 2 weeks despite antibiotic treatment. PE: Abdomen: Soft and nontender.?Normal bowel sounds X4 quadrants, no CVA tenderness bilaterally. Patient appears comfortable with stable vital signs. Nontoxic. Plan: Labs, imaging, urine HCG Ddx: Cystitis, UTI, urolithiasis, nephrolithiasis. Less likely pyelonephritis, choleycystitis, appendicitis, acute abdomen, torsion, ectopic <MEL Bush - Last Filed: 01/10/23 23:06> Differential Diagnosis Differential Diagnoses: The differential diagnosis associated with the presentation includes <MEL Bush - Last Filed: 01/10/23 23:06> Cystitis, UTI, urolithiasis, nephrolithiasis. Less likely pyelonephritis, cholecystitis, appendicitis, acute abdomen, torsion, ectopic <MEL Bush - Last Filed: 01/10/23 23:06> Admission/Observation Consideration of admission/observation: Escalation of care including admission/observation considered <MEL Bush - Last Filed: 01/10/23 23:06> romuloley <MEL Bush - Last Filed: 01/10/23 23:06> Lab Data [facility] Lab Attestation statement: I reviewed the patient's lab results. <MEL Bush - Last Filed: 01/10/23 23:06> Result Diagrams: 01/10/23 17:47 01/10/23 17:47 <MEL Banegas - Last Filed: 01/10/23 17:31> Labs: Lab Results 01/10/23 01/10/23 01/10/23 Range/Units 17:47 17:47 17:47 WBC 13.6 H (4.8-10.8) X10*3/uL RBC 4.46 (4.20-5.50) X10*6/uL Hgb 13.7 (12.0-16.0) g/dl Hct 40.1 (37.0-47.0) % MCV 89.9 (80.0-98.0) fL MCH 30.7 (27.0-33.0) pg MCHC 34.2 (31.0-35.0) g/dl RDW 12.0 (11.0-16.0) % Plt Count 398 (160-400) X10*3/uL MPV 10.4 (9.4-12.3) fL Immature Gran % (Auto) 0.6 H (0.0-0.4) % Neut % (Auto) 62.2 (45-73) % Lymph % (Auto) 29.8 (20-40) % Mason % (Auto) 3.5 (2-11) % Eos % (Auto) 3.2 (0-4) % Baso % (Auto) 0.7 (0-2) % Lymph # (Auto) 4.1 (1.2-4.9) X10*3/uL Mason # (Auto) 0.5 (0.1-1.2) X10*3/uL Eos # (Auto) 0.4 (0.0-0.4) X10*3/uL Baso # (Auto) 0.1 (0.0-0.2) X10*3/uL Abs Immat Gran (auto) 0.08 H (0.00-0.03) X10*3/uL Absolute Neuts (auto) 8.4 H (2.0-8.3) x10*3/uL Absolute Nucleated RBC 0.000 (0.0-0.012) X10*3/uL Nucleated RBC % (auto) 0.0 (0.0-0.2) /100WBC Sodium 137 (135-145) mmol/L Potassium 4.0 (3.3-5.1) mmol/L Chloride 104 (96-108) mmol/L Carbon Dioxide 23 (22-29) mmol/L Anion Gap 14 (12-20) BUN 9 (9-16) mg/dL Creatinine 0.76 (0.5-1.4) mg/dL Estim Creat Clear Calc 93.2 Estimated GFR > 60 Random Glucose 110 (60-115) mg/dL Calcium 9.6 (8.4-10.2) mg/dL Magnesium 2.0 (1.6-2.6) mg/dL Total Bilirubin 0.5 (0.0-1.0) mg/dL Direct Bilirubin 0.1 (0.0-0.5) mg/dL AST 19 (5-31) U/L ALT 12 (0-31) U/L Alkaline Phosphatase 92 (39-117) U/L Total Protein 7.9 (6.5-8.0) g/dL Albumin 4.7 (3.5-5.0) g/dL Beta HCG, Quant < 2 mIU/mL Urine Color Yellow Urine Appearance Clear Urine pH 6.5 (5.0-9.0) Ur Specific [place] <= 1.005 (1.005-1.025) Urine Protein Negative (Neg-Trace) mg/dL Urine Glucose (UA) Negative (Negative) mg/dL Urine Ketones Negative (Negative) mg/dL Urine Blood Trace H (Negative) Urine Nitrite Negative (Negative) Ur Leukocyte Esterase Negative (Negative) Urine RBC 0-2 (0-2) /HPF Urine WBC 0-5 (0-5) /HPF Ur Squamous Epith Cells 0-2 (0-2) /HPF Urine Bacteria None Seen (None Seen) Hyaline Casts 0-2 (0-2) /LPF <MEL Banegas - Last Filed: 01/10/23 17:31> Lab Results 01/10/23 01/10/23 01/10/23 Range/Units 17:47 17:47 17:47 WBC 13.6 H (4.8-10.8) X10*3/uL RBC 4.46 (4.20-5.50) X10*6/uL Hgb 13.7 (12.0-16.0) g/dl Hct 40.1 (37.0-47.0) % MCV 89.9 (80.0-98.0) fL MCH 30.7 (27.0-33.0) pg MCHC 34.2 (31.0-35.0) g/dl RDW 12.0 (11.0-16.0) % Plt Count 398 (160-400) X10*3/uL MPV 10.4 (9.4-12.3) fL Immature Gran % (Auto) 0.6 H (0.0-0.4) % Neut % (Auto) 62.2 (45-73) % Lymph % (Auto) 29.8 (20-40) % Mason % (Auto) 3.5 (2-11) % Eos % (Auto) 3.2 (0-4) % Baso % (Auto) 0.7 (0-2) % Lymph # (Auto) 4.1 (1.2-4.9) X10*3/uL Mason # (Auto) 0.5 (0.1-1.2) X10*3/uL Eos # (Auto) 0.4 (0.0-0.4) X10*3/uL Baso # (Auto) 0.1 (0.0-0.2) X10*3/uL Abs Immat Gran (auto) 0.08 H (0.00-0.03) X10*3/uL Absolute Neuts (auto) 8.4 H (2.0-8.3) x10*3/uL Absolute Nucleated RBC 0.000 (0.0-0.012) X10*3/uL Nucleated RBC % (auto) 0.0 (0.0-0.2) /100WBC Sodium 137 (135-145) mmol/L Potassium 4.0 (3.3-5.1) mmol/L Chloride 104 (96-108) mmol/L Carbon Dioxide 23 (22-29) mmol/L Anion Gap 14 (12-20) BUN 9 (9-16) mg/dL Creatinine 0.76 (0.5-1.4) mg/dL Estim Creat Clear Calc 93.2 Estimated GFR > 60 Random Glucose 110 (60-115) mg/dL Calcium 9.6 (8.4-10.2) mg/dL Magnesium 2.0 (1.6-2.6) mg/dL Total Bilirubin 0.5 (0.0-1.0) mg/dL Direct Bilirubin 0.1 (0.0-0.5) mg/dL AST 19 (5-31) U/L ALT 12 (0-31) U/L Alkaline Phosphatase 92 (39-117) U/L Total Protein 7.9 (6.5-8.0) g/dL Albumin 4.7 (3.5-5.0) g/dL Beta HCG, Quant < 2 mIU/mL Urine Color Yellow Urine Appearance Clear Urine pH 6.5 (5.0-9.0) Ur Specific [place] <= 1.005 (1.005-1.025) Urine Protein Negative (Neg-Trace) mg/dL Urine Glucose (UA) Negative (Negative) mg/dL Urine Ketones Negative (Negative) mg/dL Urine Blood Trace H (Negative) Urine Nitrite Negative (Negative) Ur Leukocyte Esterase Negative (Negative) Urine RBC 0-2 (0-2) /HPF Urine WBC 0-5 (0-5) /HPF Ur Squamous Epith Cells 0-2 (0-2) /HPF Urine Bacteria None Seen (None Seen) Hyaline Casts 0-2 (0-2) /LPF <MEL Bush Last Filed: 01/10/23 23:06> Independent Interpretation I performed an independent interpretation of an: Ultrasound (US/US pelvic and transvaginal IMPRESSION: Multiple simple appearing left ovarian cysts measuring up to 4.4 cm in diameter, likely follicular cysts. No suspicious adnexal lesions. No acute findings right ovary i s not seen. ) and CT Scan (CT/CT abdomen pelvis wo IV con IMPRESSION: 1. The left ovary is enlarged with multiple simple fluid attenuating cysts versus septated cyst measuring up to 4.5 cm. The right ovary is not visualized. Recommend further evaluation with an already ordered pelvic ultrasound. 2. Otherwise, no acute intra) <MEL Bush Last Filed: 01/10/23 23:06> Radiology Impression Discussion of test interpretation with radiology: I have reviewed the radiologist's reading. <MEL Bush Last Filed: 01/10/23 23:06> Prescription Management I considered prescription management with: Pain Medication <MEL Bush Last Filed: 01/10/23 23:06> Core Measures AMI core measures followed: Yes <MEL Bush Last Filed: 01/10/23 23:06> Measure exclusions: not indicated <MEL Bush Last Filed: 01/10/23 23:06> Medications Administered Discontinued Medications Generic Name Dose Route Start Last Admin Trade Name Freq PRN Reason Stop Dose Admin Ketorolac Tromethamine 30 mg 01/10/23 21:05 01/10/23 22:31 Ketorolac Tromethamine 15 Mg/Ml Vial IM 01/10/23 21:06 Not Given ONCE ONE <MEL Banegas - Last Filed: 01/10/23 17:31> Medications Administered Discontinued Medications Generic Name Dose Route Start Last Admin Trade Name Wendy PRN Reason Stop Dose Admin Ketorolac Tromethamine 30 mg 01/10/23 21:05 01/10/23 22:31 Ketorolac Tromethamine 15 Mg/Ml Vial IM 01/10/23 21:06 Not Given ONCE ONE <MEL Bush - Last Filed: 01/10/23 23:06> Critical Care Time Critical Care Time Critical Care Time: No <MEL Bush Last Filed: 01/10/23 23:06> Discharge Plan Discharge Clinical Impression: Abdominal pain, RLQ, Bladder spasms <MEL Banegas - Last Filed: 01/10/23 17:31> Patient Disposition: Home, Self-Care <MEL Banegas - Last Filed: 01/10/23 17:31> Instructions: Abdominal Pain (ED) <MEL Banegas - Last Filed: 01/10/23 17:31> Additional Instructions: Take your medications as prescribed. If you were prescribed antibiotics today, it is important that you take your medication to their entirety, do not skip any doses, do not finish them early. Follow-up with your primary care provider this week. Please follow-up with OBGYN as soon as possible. Return to the emergency department with new or worsening symptoms. Such as fevers, chills, chest pain, shortness of breath, nausea, vomiting, dizziness, headache, vision changes, lethargy In case of emergency call 911 Return if quality, severity of pain changes. Toradol has been sent to your pharmacy, you tolerated this well in the department. Please take this as prescribed do not take this with ibuprofen, or other NSAIDs, do not mix this with alcohol. Side effects of this medication including increased risk for bleeding and possible kidney injury. CT/CT abdomen pelvis wo IV con IMPRESSION: 1. The left ovary is enlarged with multiple simple fluid attenuating cysts versus septated cyst measuring up to 4.5 cm. The right ovary is not visualized. Recommend further evaluation with an already ordered pelvic ultrasound. 2. Otherwise, no acute intra-abdominal or pelvic abnormalities to explain the patient's symptoms. ?US/US pelvic ovarian doppler IMPRESSION: Multiple simple appearing left ovarian cysts measuring up to 4.4 cm in diameter, likely follicular cysts. No suspicious adnexal lesions. No acute findings right ovary is not seen. ? <MEL Banegas - Last Filed: 01/10/23 17:31> Prescriptions: New ketorolac 10 mg tablet 10 mg PO TID PRN (Reason: pain) 5 Days Qty: 15 0RF phenazopyridine [Pyridium] 100 mg tablet 200 mg PO TID 2 Days Qty: 6 0RF No Action buspirone 5 mg tablet 5 mg PO BID metoprolol succinate 25 mg tablet extended release 24 hr 25 mg PO DAILY PRN spironolactone 25 mg tablet 25 mg PO DAILY sodium chloride 1 gram tablet 1 g PO BID <MEL Banegas - Last Filed: 01/10/23 17:31> Referrals: [facility] [place] [facility] [Provider Group] - 1 week Wayne Montelongo MD [Primary Care Provider] - 2 days <MEL Banegas - Last Filed: 01/10/23 17:31> Stand Alone Forms: Work/School Release <MEL Banegas - Last Filed: 01/10/23 17:31>
[2023-01-10 17:52] LABS: MANUAL DIFF FLAG NO
[2023-01-10 17:53] LABS: Basophils Absolute Auto 0.1 X10*3/uL (0.0-0.2); Basophils Percent Auto 0.7 % (0-2); Eosinophils Absolute Auto 0.4 X10*3/uL (0.0-0.4); Eosinophils Percent Auto 3.2 % (0-4); Hematocrit 40.1 % (37.0-47.0); Hemoglobin 13.7 g/dl (12.0-16.0); Imm Gran Abs Auto 0.08 X10*3/uL (0.00-0.03); Imm Gran Pct Auto 0.6 % (0.0-0.4); Lymphocytes Absolute Auto 4.1 X10*3/uL (1.2-4.9); Lymphocytes Percent Auto 29.8 % (20-40); Mean Corpuscular HGB Conc 34.2 g/dl (31.0-35.0); Mean Corpuscular Hemoglobin 30.7 pg (27.0-33.0); Mean Corpuscular Volume 89.9 fL (80.0-98.0); Mean Platelet Volume 10.4 fL (9.4-12.3); Monocytes Absolute Auto 0.5 X10*3/uL (0.1-1.2); Monocytes Percent Auto 3.5 % (2-11); Neutrophils Absolute Auto 8.4 x10*3/uL (2.0-8.3); Neutrophils Percent Auto 62.2 % (45-73); Platelet Count 398 X10*3/uL (160-400); Red Blood Count 4.46 X10*6/uL (4.20-5.50); White Blood Count 13.6 X10*3/uL (4.8-10.8)
[2023-01-10 17:55] LABS: Appearance Urine Clear; Color Urine Yellow; Glucose Urine UA Negative (Negative); Leukocyte Esterase Urine Negative (Negative); Nitrite Urine Negative (Negative); PH 6.5 (5.0-9.0); Specific Gravity - Urine <= 1.005 (1.005-1.025); UMIC TRIGGER UACC YES; Urine Blood Trace (Negative); Urine Ketones Negative (Negative); Urine Protein Negative (Neg-Trace)
[2023-01-10 18:00] LABS: Bacteria Urine None Seen (None Seen); Hyaline Casts Urine 0-2 /LPF (0-2); RBC Urine 0-2 /HPF (0-2); Squamous Epithelial Cell Urine 0-2 /HPF (0-2); WBC Urine 0-5 /HPF (0-5)
[2023-01-10 18:21] LABS: Alanine Aminotransferase 12 U/L (0-31); Albumin Level 4.7 g/dL (3.5-5.0); Alkaline Phosphatase 92 U/L (39-117); Anion Gap 14 (12-20); Aspartate Amino Transferase 19 U/L (5-31); Bilirubin Direct 0.1 mg/dL (0.0-0.5); Bilirubin Total 0.5 mg/dL (0.0-1.0); Blood Urea Nitrogen 9 mg/dL (9-16); Calcium 9.6 mg/dL (8.4-10.2); Carbon Dioxide 23 mmol/L (22-29); Chloride 104 mmol/L (96-108); Creatinine Clr Calc Pharmacy 93.2; Estimated Glomerular Filt Rate > 60; Glucose Random 110 mg/dL (60-115); HCG Quantitative < 2 mIU/mL; Sodium 137 mmol/L (135-145); Total Protein 7.9 g/dL (6.5-8.0)
[2023-01-10 22:21] VITALS: BP 122/77; PULSE 95; RESP 18; TEMP 36.9; O2SAT 100
[2023-01-10] MEDS: Ketorolac Tromethamine 30 MG/ML VIAL IM (23:11)
== END 2023-01-10 23:23 | disposition home or self-care (01) ==
PROVIDERS: Physician Assistant; Emergency Provider Emergency Medicine; PCP Internal Medicine
DX: R10.31 Right lower quadrant pain (principal); R25.2 Cramp and spasm; R10.2 Pelvic and perineal pain; Z79.899 Other long term (current) drug therapy
CPT/HCPCS: 36415; 74176; 76830; 76856; 80048; 80076; 81001; 83735; 84702; 85025; 93975; 96372; 99283; 99284; J1885

== ENCOUNTER 2023-03-25 12:54 | Outpatient (AMB) | payer OTHER, SELFPAY ==
[2023-03-25 12:58] VITALS: BP 122/84; PULSE 103; BMI 25.4
--- NOTE | 2023-03-25 12:58 | MHC.OFFVIS ---
Intake Vital Signs 03/25/23 12:58 Height 5 ft 3 in Weight 143 lb 4.807 oz BMI 25.4 BP 122/84 Blood Pressure Location Lt brachial Position Sitting Pulse 103 H Intake Visit Reasons: 1 year follow up Intake Note: 1 year follow-up with ekg feeling good Fan Mail Clerk Required: No Allergies seafood Allergy (Verified 06/21/22 08:51) Angioedema Medication List - Last Reconciled 03/25/23 by Arthur Florian MD amlodipine 2.5 mg PO DAILY buspirone 5 mg PO DAILY ketorolac 10 mg PO TID PRN metoprolol succinate ER 25 mg PO DAILY PRN phenazopyridine (Pyridium) 200 mg PO TID sodium chloride 1 g PO BID PRN spironolactone 25 mg PO DAILY HPI HPI Comments History of Present Illness Details Lorena comes for follow-up. Recently she was diagnosed hypertension started on amlodipine therapy. This was after she was having constant headache and was noted to have elevated blood pressure. The symptoms have improved. She also cut back on salt intake. She maintains adequate fluid intake. She does not month symptoms of palpitations or lightheadedness. Denies any other exertional symptoms. Maintains activity level. She continues to have high stress and anxiety. [facility] Medical History No significant past medical history Surgical History History of hemorrhoidectomy History of wisdom tooth extraction Hx of lithotripsy Family History Maternal Grandmother History of colon cancer Father HTN (hypertension) Mother HTN (hypertension) Paternal Uncle Vasovagal episode Social History Are you a primary post acute care nurse practitioner to a significant other at home: No Do you presently have visiting nurse or other home services: No Alcohol intake: never Patient Tobacco Use Status: Never used Tobacco Review of Systems Const Denies chills, Denies fatigue, Denies fever(s), Denies frequent falls, Denies weakness, Denies weight gain and Denies weight loss ENT Denies dizziness Card Denies chest pain, Denies leg edema, Denies lightheadedness, Denies palpitations, Denies dyspnea, Denies dyspnea on exertion, Denies orthopnea and Denies other (loss of consciousness) Resp Denies cough, Denies dyspnea and Denies dyspnea on exertion GI Denies hematochezia and Denies change in stool character Musc Denies abnormal gait, Denies muscle weakness, Denies numbness, Denies radiating pain into limb and Denies tingling Neuro Denies abnormal gait, Denies dizziness, Denies frequent falls, Denies numbness, Denies tingling and Denies weakness Endo Denies fatigue and Denies palpitations Physical Exam Vital Signs: Last Vital Signs Pulse 103 H 03/25/23 12:58 BP 122/84 03/25/23 12:58 BMI result Body Mass Index 25.4 Const General: cooperative, comfortable, alert, awake and anxious Nutritional Appearance: thin Orientation/consciousness: patient oriented x3 Limitations: no limitations Neck Neck: Yes trachea midline, Yes supple and Yes no JVD Resp Effort & Inspection: normal respiratory effort Auscultation: clear to auscultation bilaterally Cardio Jugular venous distension: no JVD Palpation: normal PMI Rate: regular rate Rhythm: regular rhythm Heart sounds: S1 normal heart sound present and S2 normal heart sound present Skin General skin exam: no rashes or lesions noted Neuro General: patient oriented x3 and no focal motor deficits Extrem General: Yes normal to inspection Psych Appearance: grossly normal Affect: Anxious affect present Office Procedures EKG Details: EKG shows sinus tachycardia at 103 beats per minute [id number], Complete Assessment & Plan Assessment & Plan (1) Postural orthostatic tachycardia syndrome: Code(s): I49.8 - Other specified cardiac arrhythmias Plan: Postural orthostatic tachycardia syndrome seems to have resolved. Patient has not developed hypertension. Advised to reduce salt intake. Agree with amlodipine therapy at this point time. There is no indication of metoprolol therapy this can also be discontinued. Advised to maintain adequate hydration. Stress mitigation strategies were discussed. Will follow up in the clinic in 1 year's time, sooner p.r.n.. Medications: Changed From ketorolac 10 mg PO TID 5 days PRN 15 tabs 0RF pain To ketorolac 10 mg PO TID PRN pain From phenazopyridine (Pyridium) 200 mg (2 x 100 mg) PO TID 2 days 6 tabs 0RF To phenazopyridine (Pyridium) 200 mg PO TID Coding Level of Care Code Est Pt Level 3 (25542) Diagnoses Postural orthostatic tachycardia syndrome I49.8 CPT Codes EKG - CPT: 84455-[id number], Complete ([id number])
== END 2023-03-25 13:20 | disposition home or self-care (01) ==
PROVIDERS: Visit Provider Internal Medicine Cardiovascular Disease
DX: I49.8 Other specified cardiac arrhythmias (principal)
CPT/HCPCS: 93010; 99213

== ENCOUNTER → 2023-03-25 12:54 | Outpatient (BNVA) | payer OTHER, SELFPAY | PROVIDERS: Visit Provider Internal Medicine Cardiovascular Disease | DX: I49.8 Other specified cardiac arrhythmias (principal); R51.9 Headache, unspecified | CPT/HCPCS: 93005; 99212 ==

== ENCOUNTER 2023-08-22 12:18 | Outpatient (REF) | payer OTHER, SELFPAY ==
--- NOTE | ~2023-08-22 | XR_ITS ---
EXAMINATION: XR FOOT, LEFT CLINICAL INFORMATION: Left foot injury COMPARISON: None available. TECHNIQUE: AP, lateral, and oblique views of the left foot. FINDINGS: The bones and soft tissues are normal. No fracture. Alignment is anatomic. Joint spaces are maintained. XR/XR foot LT min 3V IMPRESSION: Normal left foot.
== END 2023-08-22 12:19 | disposition home or self-care (01) ==
LOC: HO.XRAY 12:18
PROVIDERS: PCP Internal Medicine; Visit Provider Internal Medicine
DX: S99.922D Unspecified injury of left foot, subsequent encounter (principal)
CPT/HCPCS: 73630

== ENCOUNTER 2024-03-01 15:58 | Outpatient (REF) | payer OTHER, SELFPAY ==
[2024-03-01 16:09] LABS: MANUAL DIFF FLAG NO
[2024-03-01 16:28] LABS: Basophils Absolute Auto 0.1 X10*3/uL (0.0-0.2); Basophils Percent Auto 0.6 % (0-2); Eosinophils Absolute Auto 0.2 X10*3/uL (0.0-0.4); Eosinophils Percent Auto 1.7 % (0-4); Hematocrit 40.3 % (37.0-47.0); Hemoglobin 13.9 g/dl (12.0-16.0); Imm Gran Abs Auto 0.05 X10*3/uL (0.00-0.03); Imm Gran Pct Auto 0.4 % (0.0-0.4); Lymphocytes Absolute Auto 3.5 X10*3/uL (1.2-4.9); Lymphocytes Percent Auto 28.8 % (20-40); Mean Corpuscular HGB Conc 34.5 g/dl (31.0-35.0); Mean Platelet Volume 10.7 fL (9.4-12.3); Monocytes Absolute Auto 0.5 X10*3/uL (0.1-1.2); Monocytes Percent Auto 4.5 % (2-11); Neutrophils Absolute Auto 7.8 x10*3/uL (2.0-8.3); Platelet Count 384 X10*3/uL (160-400); Red Blood Count 4.48 X10*6/uL (4.20-5.50); Red Cell Distribution Width 12.1 % (11.0-16.0); White Blood Count 12.1 X10*3/uL (4.8-10.8)
[2024-03-01 17:17] LABS: Alanine Aminotransferase 11 U/L (0-31); Albumin Level 4.6 g/dL (3.5-5.0); Alkaline Phosphatase 86 U/L (39-117); Anion Gap 13 (12-20); Aspartate Amino Transferase 17 U/L (5-31); Bilirubin Total 0.5 mg/dL (0.0-1.0); Blood Urea Nitrogen 10 mg/dL (9-16); C Reactive Protein 0.48 mg/dL (< or = 0.50); Calcium 9.6 mg/dL (8.4-10.2); Carbon Dioxide 28 mmol/L (22-29); Chloride 103 mmol/L (96-108); Estimated Glomerular Filt Rate > 60; Glucose Random 87 mg/dL (60-115); Magnesium 2.2 mg/dL (1.6-2.6); Sodium 140 mmol/L (135-145); Total Protein 8.2 g/dL (6.5-8.0)
== END 2024-03-01 15:59 | disposition home or self-care (01) ==
LOC: HO.LAB 15:58
PROVIDERS: PCP Internal Medicine; Visit Provider Internal Medicine
DX: I10 Essential (primary) hypertension (principal); R51.9 Headache, unspecified; K21.9 Gastro-esophageal reflux disease without esophagitis
CPT/HCPCS: 36415; 80053; 82550; 83735; 85025; 86140

== ENCOUNTER 2024-03-29 13:23 | Outpatient (AMB) | payer OTHER, SELFPAY ==
--- NOTE | 2024-03-29 13:28 | A.OFFVIS_ITS ---
Vital Signs 03/29/24 13:29 03/29/24 13:42 03/29/24 13:45 03/29/24 13:45 Height 5 ft 3 in Weight 145 lb 8.081 oz BMI 25.8 BP 120/72 128/71 132/72 144/71 H Blood Pressure Location Lt brachial Lt brachial Lt brachial Lt brachial Position Sitting Supine Sitting Standing Pulse 79 84 89 96 Intake Visit Reasons: 1 YEAR FOLLOW UP Intake Note: 1 year follow-up with ekg has been feeling good Pompom Maker Required: No Allergies seafood Allergy (Verified 06/21/22 08:51) Angioedema Medication List - Last Reconciled 03/29/24 by Arthur Florian MD amlodipine 2.5 mg PO DAILY buspirone 10 mg PO DAILY magnesium carb,citrate,oxide (Magnesium Complex) mg PO sodium chloride 1 g PO BID PRN spironolactone 25 mg PO DAILY HPI Comments Details: Lorena comes for follow-up. She says symptomatically she has been doing very well. A blood pressures been very well controlled. However she still notice when she stands up her heart rate is up to 130 beats per minute end-stage that. She has no symptoms of palpitations. No lightheadedness. She denies any syncopal episodes. She says she stops watching her heart rate after some time. However when she is doing supine exercises heart rate up to 120 beats per minute. Denies any heart failure symptoms. Says more recently she has not been keeping up with her oral fluid intake. [facility] Medical History No significant past medical history Surgical History History of hemorrhoidectomy Hx of lithotripsy History of wisdom tooth extraction Family History Maternal Grandmother History of colon cancer Father HTN (hypertension) Mother HTN (hypertension) Paternal Uncle Vasovagal episode Social History Are you a primary long term care phlebotomist to a significant other at home: No Do you presently have visiting nurse or other home services: No Alcohol intake: never Patient Tobacco Use Status: Never used Tobacco Review of Systems Const Denies chills, Denies fatigue, Denies fever(s), Denies frequent falls, Denies weakness, Denies weight gain and Denies weight loss ENT Denies dizziness Card Denies chest pain, Denies leg edema, Denies lightheadedness, Denies palpitations, Denies dyspnea, Denies dyspnea on exertion, Denies orthopnea and Denies other (loss of consciousness) Resp Denies cough, Denies dyspnea and Denies dyspnea on exertion GI Denies hematochezia and Denies change in stool character Musc Denies abnormal gait, Denies muscle weakness, Denies numbness, Denies radiating pain into limb and Denies tingling Neuro Denies abnormal gait, Denies dizziness, Denies frequent falls, Denies numbness, Denies tingling and Denies weakness Endo Denies fatigue and Denies palpitations Physical Exam Vital Signs: Last Vital Signs Pulse 79 03/29/24 13:29 BP 120/72 03/29/24 13:29 BMI result Body Mass Index 25.8 Const General: cooperative, comfortable, alert, awake and anxious Nutritional Appearance: thin Orientation/consciousness: patient oriented x3 Limitations: no limitations Neck Neck: Yes trachea midline, Yes supple and Yes no JVD Resp Effort & Inspection: normal respiratory effort Auscultation: clear to auscultation bilaterally Cardio Jugular venous distension: no JVD Palpation: normal PMI Rate: regular rate Rhythm: regular rhythm Heart sounds: S1 normal heart sound present and S2 normal heart sound present Skin General skin exam: no rashes or lesions noted Neuro General: patient oriented x3 and no focal motor deficits Extrem General: Yes normal to inspection Psych Appearance: grossly normal Affect: Anxious affect present Office Procedures EKG Details: EKG shows normal sinus rhythm normal EKG at 79 beats per minute [id number], Complete Assessment & Plan Assessment & Plan (1) Postural orthostatic tachycardia syndrome: Code(s): I49.8 - Other specified cardiac arrhythmias Category: Medical Plan: Postural orthostatic tachycardia syndrome with persistent postural tachycardia without symptoms noted. I will discuss about increasing her fluid intake to 80 oz a day. Avoid heavy salt intake. Will switch her amlodipine to Inderal long- acting to target both blood pressure as well as heart rate. Advised to call me with any side effects. Orthostatic precautions were discussed. She is already on spironolactone therapy for acne treatment which should help with blood pressure management as well. Advised to monitor her blood pressure heart rate at home. Will follow up in the clinic in 1 year's time, sooner p.r.n.. Thank you for allowing me to partake in her care Medications: New propranolol ER (Inderal LA) 60 mg PO DAILY 30 caps 5RF Coding Level of Care Code Est Pt Level 3 (45371) Diagnoses Postural orthostatic tachycardia syndrome I49.8 CPT Codes EKG - CPT: 17575-[id number], Complete ([id number])
[2024-03-29 13:29] VITALS: BP 120/72; PULSE 79; BMI 25.8
[2024-03-29 13:42] VITALS: BP 128/71; PULSE 84
[2024-03-29 13:45] VITALS: BP 132/72; BP 144/71; PULSE 89; PULSE 96
== END 2024-03-29 13:55 | disposition home or self-care (01) ==
PROVIDERS: PCP Internal Medicine; Visit Provider Internal Medicine Cardiovascular Disease
DX: I49.8 Other specified cardiac arrhythmias (principal)
CPT/HCPCS: 93010; 99213

== ENCOUNTER → 2024-03-29 13:23 | Outpatient (BNVA) | payer OTHER, SELFPAY | PROVIDERS: PCP Internal Medicine; Visit Provider Internal Medicine Cardiovascular Disease | DX: I49.8 Other specified cardiac arrhythmias (principal) | CPT/HCPCS: 93005; 99212 ==

== ENCOUNTER 2024-05-20 11:16 | Outpatient (REF) | payer OTHER, SELFPAY ==
[2024-05-20 13:14] LABS: MANUAL DIFF FLAG NO
[2024-05-20 13:48] LABS: Alanine Aminotransferase 11 U/L (0-31); Albumin Level 4.8 g/dL (3.5-5.0); Alkaline Phosphatase 81 U/L (39-117); Anion Gap 14 (12-20); Aspartate Amino Transferase 15 U/L (5-31); Bilirubin Total 0.7 mg/dL (0.0-1.0); Blood Urea Nitrogen 10 mg/dL (9-16); C Reactive Protein 0.55 mg/dL (< or = 0.50); Calcium 10.7 mg/dL (8.4-10.2); Carbon Dioxide 25 mmol/L (22-29); Chloride 102 mmol/L (96-108); Estimated Glomerular Filt Rate > 60; Glucose Random 120 mg/dL (60-115); Magnesium 2.1 mg/dL (1.6-2.6); Potassium 3.8 mmol/L (3.3-5.1); Sodium 137 mmol/L (135-145); Total Protein 8.3 g/dL (6.5-8.0)
[2024-05-20 13:59] LABS: Basophils Absolute Auto 0.1 X10*3/uL (0.0-0.2); Basophils Percent Auto 0.7 % (0-2); Eosinophils Absolute Auto 0.2 X10*3/uL (0.0-0.4); Eosinophils Percent Auto 1.5 % (0-4); Imm Gran Abs Auto 0.06 X10*3/uL (0.00-0.03); Imm Gran Pct Auto 0.5 % (0.0-0.4); Lymphocytes Absolute Auto 2.5 X10*3/uL (1.2-4.9); Lymphocytes Percent Auto 21.6 % (20-40); Mean Corpuscular HGB Conc 34.1 g/dl (31.0-35.0); Mean Corpuscular Hemoglobin 30.7 pg (27.0-33.0); Mean Corpuscular Volume 89.9 fL (80.0-98.0); Mean Platelet Volume 11.1 fL (9.4-12.3); Monocytes Absolute Auto 0.5 X10*3/uL (0.1-1.2); Monocytes Percent Auto 4.1 % (2-11); Neutrophils Absolute Auto 8.1 x10*3/uL (2.0-8.3); Neutrophils Percent Auto 71.6 % (45-73); Platelet Count 380 X10*3/uL (160-400); Red Blood Count 4.56 X10*6/uL (4.20-5.50); Red Cell Distribution Width 11.9 % (11.0-16.0); White Blood Count 11.3 X10*3/uL (4.8-10.8)
[2024-05-20 14:15] LABS: Free T4 (Free Thyroxine) 0.98 ng/dL (0.71-1.85); Thyroid Stimulating Hormone 1.36 uIU/mL (0.32-4.0)
[2024-05-21 12:34] LABS: Thyroid Peroxidase Antibodies 1 IU/mL (<9)
== END 2024-05-20 11:17 | disposition home or self-care (01) ==
LOC: HO.10HDL 11:16
PROVIDERS: Visit Provider Internal Medicine
DX: R00.2 Palpitations (principal); I10 Essential (primary) hypertension; K21.9 Gastro-esophageal reflux disease without esophagitis; G90.A Postural orthostatic tachycardia syndrome [POTS]
CPT/HCPCS: 36415; 80053; 82550; 83735; 84439; 84443; 85025; 86140; 86376

== ENCOUNTER 2024-05-28 08:10 | Outpatient (REF) | payer OTHER, SELFPAY ==
[2024-05-28 09:28] LABS: Parathyroid Hormone Intact 38.7 pg/mL (8.7-77.1)
[2024-05-28 09:30] LABS: Anion Gap 11 (12-20); Blood Urea Nitrogen 12 mg/dL (9-16); Calcium 9.5 mg/dL (8.4-10.2); Carbon Dioxide 28 mmol/L (22-29); Chloride 105 mmol/L (96-108); Estimated Glomerular Filt Rate > 60; Glucose Fasting 94 mg/dL (60-99); Potassium 4.2 mmol/L (3.3-5.1); Sodium 140 mmol/L (135-145)
[2024-05-28 09:52] LABS: Vitamin D 25-OH Total 41.3 ng/mL (>30)
[2024-05-28 11:00] LABS: Estimated Average Glucose 97 mg/dL
== END 2024-05-28 08:11 | disposition home or self-care (01) ==
LOC: HO.LAB 08:10
PROVIDERS: PCP Internal Medicine; Visit Provider Internal Medicine
DX: R73.03 Prediabetes (principal); E83.52 Hypercalcemia
CPT/HCPCS: 36415; 80048; 82306; 83036; 83970

== ENCOUNTER 2024-07-23 10:08 | Outpatient (REF) | payer OTHER, SELFPAY ==
[2024-07-23 11:05] LABS: Parathyroid Hormone Intact 18.6 pg/mL (8.7-77.1)
[2024-07-23 11:08] LABS: Alanine Aminotransferase 14 U/L (0-31); Albumin Level 4.3 g/dL (3.5-5.0); Alkaline Phosphatase 76 U/L (39-117); Anion Gap 9 (12-20); Aspartate Amino Transferase 19 U/L (5-31); Bilirubin Total 0.7 mg/dL (0.0-1.0); Blood Urea Nitrogen 10 mg/dL (9-16); Calcium 9.1 mg/dL (8.4-10.2); Carbon Dioxide 28 mmol/L (22-29); Chloride 103 mmol/L (96-108); Estimated Glomerular Filt Rate > 60; Glucose Random 86 mg/dL (60-115); Magnesium 1.9 mg/dL (1.6-2.6); Potassium 3.9 mmol/L (3.3-5.1); Sodium 136 mmol/L (135-145); Total Protein 7.5 g/dL (6.5-8.0)
== END 2024-07-23 10:09 | disposition home or self-care (01) ==
LOC: HO.10HDL 10:08
PROVIDERS: Visit Provider Internal Medicine
DX: I10 Essential (primary) hypertension (principal); G90.A Postural orthostatic tachycardia syndrome [POTS]; E83.52 Hypercalcemia
CPT/HCPCS: 36415; 80053; 83735; 83970

== ENCOUNTER 2025-01-21 11:05 | Outpatient (AMB) | payer MEDICAID, SELFPAY ==
--- NOTE | 2025-01-21 11:08 | MHC.PC.OV ---
Vital Signs 01/21/25 11:11 01/21/25 12:32 Height 5 ft 3 in Weight 65.771 kg BMI 25.7 BP 138/90 H 120/82 Respiration 12 Pulse 94 Pulse Source Pulse Oximeter Temp 98.6 F Temp Source Temporal Artery Scan Pulse Oximetry (%) 99 Oxygen Delivery Method Room Air Intake Visit Reasons: Routine Speech Clinician Required: No Accompanied by: Self / Same As Patient Allergies seafood Allergy (Verified 01/21/25 11:08) Angioedema Medication List - Last Reconciled 01/21/25 by MEL Villanueva amlodipine 2.5 mg PO DAILY magnesium carb,citrate,oxide (Magnesium Complex) mg PO sertraline 50 mg PO BEDTIME sodium chloride 1 g PO BID PRN spironolactone 25 mg PO DAILY HPI HPI Comments History of Present Illness Details 39-year-old female with history of POTS and acne presents to the office today for routine follow-up. She has been following with Cardiology for her diagnosis of POTS which was diagnosed in 2022. She reports she is still experiencing palpitations, particularly with exercise. She reports that her heart rate goes up to the 120s with exertion but at rest can be as low as 57. She had been taking propranolol but reports feeling very lightheaded at times due to mild bradycardia. She states she also stopped taking BuSpar as she did not feel this was helping her symptoms of anxiety. She does take spironolactone for acne but has been out of this medication for several days. With regard to her POTS, she states that she does drink increased amount of fluids but has not been exercising much. She does feel she is taking in adequate sodium so discontinued her sodium chloride. She does wear compression stockings at work. No synocal episodes or ongoing lightheadedness. No sob, chest pain, sweats. [facility] Medical History No significant past medical history Surgical History History of hemorrhoidectomy Hx of lithotripsy History of wisdom tooth extraction Family History Maternal Grandmother History of colon cancer Father HTN (hypertension) Mother HTN (hypertension) Paternal Uncle Vasovagal episode Social History Are you a primary foster care case manager to a significant other at home: No Do you presently have visiting nurse or other home services: No Alcohol intake: never Patient Tobacco Use Status: Never used Tobacco Review of Systems Const All systems reviewed & are unremarkable except as noted in HPI and below Physical exam (Primary Care) Vital Signs: Last Vital Signs Temp 98.6 F 01/21/25 11:11 Pulse 94 01/21/25 11:11 Resp 12 01/21/25 11:11 BP 138/90 H 01/21/25 11:11 Pulse Ox 99 01/21/25 11:11 Oxygen Delivery Method Room Air 01/21/25 11:11 BMI result Body Mass Index 25.7 Tobacco/Smoking Status: Tobacco use Status Patient Tobacco Use Status Never used Tobacco 01/21/25 11:13 Const Other: Constitutional - Awake and Alert, No apparent distress Eyes - PERRL Cardiovascular - S1S2, RRR, No edema, rate 90 Respiratory - Normal lung expansion, Normal respiratory effort, No respiratory distress, CTA bilaterally Extremities - no calf tenderness bilaterally, no swelling Skin - Warm/Dry Neurological - Alert & oriented x3 Psychological - Appropriate affect Coding Level of Care Code New Pt Level 4 (05265) Complex EM visit Add On G2211 Diagnoses Postural orthostatic tachycardia syndrome I49.8 Acne L70.9 Anxiety F41.9 Assessment & Plan Assessment & Plan (1) Postural orthostatic tachycardia syndrome: Code(s): I49.8 - Other specified cardiac arrhythmias Category: Medical Plan: Still symptomatic but has been unable to tolerate BB due to bradycardia as HR can be as low as 57 per patient, 90 in office today. Discussed midodrine, but given the lightheadedness and bradycardia with the BB, hesitant to prescribe this. She will be following up with cardiology in March and reports symptoms are manageable until she can be seen. She will continue spironolactone and amlodipine for blood pressure management. Buspar will be discontinued as she has found this to be ineffective despite dose changes. Will trial sertraline 50mg daily, counseled on dosing and side effects. (2) Acne: Code(s): L70.9 - Acne, unspecified Category: Medical Plan: Managed. Continue spironolactone. Blood pressure stable. (3) Anxiety: Code(s): F41.9 - Anxiety disorder, unspecified Category: Medical Plan: More likely related to POTS than generalized anxiety disorder. However, management of symptoms will likely be effective in managing POTS. Osvaldo christianson, initiating sertraline as above. Plan Follow up in the office for physical exam. Follow up with cardiology. Med changes as above Orders: Orders Basic Metabolic Panel Today Z00.00 - Encounter for general adult medical examination without abnormal findings Lipid Panel Today Z00.00 - Encounter for general adult medical examination without abnormal findings Liver Panel Today Z00.00 - Encounter for general adult medical examination without abnormal findings Complete Blood Count Auto Diff Today Z00.00 - Encounter for general adult medical examination without abnormal findings Hemoglobin A1c Today Z00.00 - Encounter for general adult medical examination without abnormal findings TSH reflex Free T4 Today Z00.00 - Encounter for general adult medical examination without abnormal findings Medications: New sertraline Take 25 mg nightly x7days, then 50 mg nightly 50 mg PO BEDTIME 30 tabs 3RF spironolactone 25 mg PO DAILY 90 tabs 1RF Refilled amlodipine 2.5 mg PO DAILY 90 tabs 1RF
[2025-01-21 11:11] VITALS: BP 138/90; PULSE 94; RESP 12; TEMP 37; O2SAT 99; BMI 25.7
--- OUTSIDE RECORDS SUMMARY | 2025-01-21 11:34 | XMS_ITS | Encounter Summary ---
Author Organization [facility] Address [address] [place] [address] Phone Care Team Providers Care Seo Manager Name Role Phone Jeannie Arias MD Primary Care Provider Unava ilable Encounter Details Date Type Department Care Team (Late st Contact Info) Description 04/24/2017 Conversion Encounter [facility] - [address] [address] Social History Tobacco Use Types Packs/Day Years Used Date Smoking Tobacco: Never Assessed Comments Unknown Sex and Gender Information Value Date Recorded Sex Assigned at Not on file Legal Sex Female 4:16 PM EDT Gender Identity Not on file Sexual Orientation Not on file documented as of this encounter Plan of Treatment Not on file documented as of this encounter Visit Diagnoses Not on filedocumented in this encounter Care Teams Seo Manager Relationship Specialty Start Date End Date Jeannie Arias MD PCP - General 04/18/17 documented as of this encounter
--- OUTSIDE RECORDS SUMMARY | 2025-01-21 11:34 | XMS_ITS | Clinical Summary ---
Author Organization [facility] Address [address] [place] [address] Phone Care Team Providers Care Process Excellence Manager Name Role Phone Jeannie Arias MD Primary Care Provider Unava ilable Immunizations Immunization Administration Dates Next Due DTP 09/07/1991, 8,03/23/1987,1986,1986 Hep B, ped/adol 11/14/1998,07/13/1998,02/13/1998 Hib (HbOC) 10/31/1988 IPV 09/07/1991, 8,01/11/1987,1986 MMR 11/14/1998,12/06/1987 Td (adult) (Tenivac), 5 Lf t etanus toxoid, PF, adsorbed 06/07/1999 Family History Relation Name Status Comments Brother Alive Brother: Alive and well Father Alive Father: Alive a nd well Mother Alive Mother: Alive a nd well Sister Alive Sister: Alive a nd well Social History Tobacco Use Types Packs/Day Years Used Date Smoking Tobacco: Never Assessed Comments Unknown Sex and Gender Information Value Date Recorded Sex Assigned at Not on file Legal Sex Female 4:16 PM EDT Gender Identity Not on file Sexual Orientation Not on file Plan of Treatment Health Maintenance Due Date Last Done Comments DTaP,Tdap,and Td Vaccines (6 - Tdap) 06/08/1999 06/07/1999, 09/07/1991, 05/08/1988, Additional history exists Varicella Vaccines (1 of 2 - 13+ 2-dose series) 1999 Influenza Vaccines (#1) 2024 COVID-19 Vaccine ( season) 2024 HIB Vaccines Completed 10/31/1988 IPV Vaccines Completed 09/07/1991, 04/10, 01/11/1987, Additional history exists Hepatitis B Vaccines Completed 11/14/1998, 07/13/1998, 02/13/1998 MMR Vaccines Completed 11/14/1998, 12/06/1987 HPV Vaccines Aged Out No longer eligi ble based on patient's age to complete this topic Hepatitis A Vaccines Aged Out No long er eligible based on patient's age to complete this topic Men B Vaccine Aged Out No longer elig ible based on patient's age to complete this topic Meningococcal Vaccine Aged Out No ashley chayo eligible based on patient's age to complete this topic Pneumococcal Vaccine Aged Out No long er eligible based on patient's age to complete this topic Care Teams Process Excellence Manager Relationship Specialty Start Date End Date Jeannie Arias MD PCP - General 04/18/17
[2025-01-21 12:32] VITALS: BP 120/82
== END 2025-01-21 11:42 | disposition home or self-care (01) ==
LOC: HO.HMCHD 11:06
PROVIDERS: PCP Internal Medicine; Visit Provider Physician Assistant
DX: I49.8 Other specified cardiac arrhythmias (principal); L70.9 Acne, unspecified; F41.9 Anxiety disorder, unspecified

== ENCOUNTER → 2025-01-21 11:05 | Outpatient (BNVA) | payer OTHER, SELFPAY | PROVIDERS: PCP Internal Medicine; Visit Provider Physician Assistant | DX: G90.A Postural orthostatic tachycardia syndrome [POTS] (principal); L70.9 Acne, unspecified; F41.9 Anxiety disorder, unspecified; Z79.899 Other long term (current) drug therapy | CPT/HCPCS: 99212 ==

== ENCOUNTER → 2025-02-14 09:11 | Outpatient (BNVA) | payer OTHER, SELFPAY | PROVIDERS: PCP Internal Medicine; Visit Provider Physician Assistant Medical | DX: Z77.21 Contact with and (suspected) exposure to potentially hazardous body fluids (principal) | CPT/HCPCS: 84450; 84460; 86706; 86803; 87389; 99202 ==

== ENCOUNTER → 2025-02-16 15:14 | Outpatient (BNVA) | payer OTHER, SELFPAY | PROVIDERS: PCP Internal Medicine; Visit Provider Physician Assistant Medical | DX: Z77.21 Contact with and (suspected) exposure to potentially hazardous body fluids (principal) | CPT/HCPCS: 99213 ==

== ENCOUNTER 2025-03-25 11:42 | Outpatient (AMB) | payer OTHER, MEDICAID, SELFPAY ==
--- NOTE | 2025-03-25 11:45 | MHC.PC.OV ---
Vital Signs 03/25/25 11:51 Height 5 ft 3 in Weight 66.678 kg BMI 26.0 BP 122/80 Blood Pressure Location Lt brachial Position Sitting Respiration 16 Pulse 81 Temp 97.6 F Temp Source Temporal Artery Scan Pulse Oximetry (%) 99 Oxygen Delivery Method Room Air Intake Visit Reasons: Discuss RX Lumber Checker Required: No Accompanied by: Self / Same As Patient Allergies seafood Allergy (Verified 03/25/25 11:45) Angioedema Medication List - Last Reconciled 03/25/25 by MEL Villanueva amlodipine 2.5 mg PO DAILY buspirone Take 5mg BID, if symptoms persist, take 5mg TID; magnesium 250 mg PO DAILY spironolactone 25 mg PO DAILY Tobacco use date assessed: 03/25/25 HPI HPI Comments History of Present Illness Details 31-year-old female with history of POTS, hypertension, anxiety presents to the office today for follow-up. She was prescribed sertraline at last visit to help with anxiety but experienced significant side effects after 1 dose, she was very agitated and could not settle. She had previously been taking BuSpar prior to this but did not feel like this was helping overall. She questions whether she can help manage her symptoms with diet and exercise. She previously been on beta-dajuan but was becoming bradycardic and experience some dyspnea and just overall not feeling well. Resting heart rate is typically within normal limits but states that upon standing and ambulating, heart rate significantly elevates. She does experience palpitations at that time. No chest pain or dyspnea. She does follow with Dr. Florian in Cardiology and has upcoming appointment. Blood pressure is controlled today and she does continue on amlodipine. ROS: General: No fevers, malaise, unintentional weight loss Cardiovascular: See HPI Respiratory: See HPI MSK: No myalgia, back pain Neuro: No headaches, weakness, paresthesias Skin: No rashes or lesions EXAM: Constitutional - Awake and Alert, No apparent distress Eyes - PERRL Cardiovascular - S1S2, RRR, No edema Respiratory - Normal lung expansion, Normal respiratory effort, No respiratory distress, CTA bilaterally Extremities - no calf tenderness bilaterally, no swelling Skin - Warm/Dry Neurological - Alert & oriented x3 Psychological - Appropriate affect [facility] Medical History (Updated 03/25/25 @ 12:09 by MEL Villanueva) HTN (hypertension) No significant past medical history Surgical History History of hemorrhoidectomy Hx of lithotripsy History of wisdom tooth extraction Family History Maternal Grandmother History of colon cancer Father HTN (hypertension) Mother HTN (hypertension) Paternal Uncle Vasovagal episode Social History Are you a primary home health care physician to a significant other at home: No Do you presently have visiting nurse or other home services: No Alcohol intake: never Patient Tobacco Use Status: Never used Tobacco e-Cigarette/Vaping Use: Never Used Questionnaire PHQ-9 Over the last 2 weeks, how often have you been bothered by any of the following problems? 1. Little interest or pleasure in doing things: several days 2. Feeling down, depressed, or hopeless: several days 3. Trouble falling or staying asleep, or sleeping too much: not at all 4. Feeling tired or having little energy: several days 5. Poor appetite or overeating: not at all 6. Feeling bad about yourself - or that you are a failure or have let yourself or your family down: not at all 7. Trouble concentrating on things, such as reading the newspaper or watching television: not at all 8. Moving or speaking so slowly that other people could have noticed. Or the opposite - being so fidgety or restless that you have been moving around a lot more than usual: not at all 9. Thoughts that you would be better off or of hurting yourself in some way: not at all Total score: 3 Source: Developed by Drs. Jose Rafael Nickerson, Samantha Oliveira, Montrell Mcintosh and colleagues, with an educational angel from [employer]. Thrive Questionnaire Date Thrive assessed: 03/25/25 I am a: Patient What is your living situation today?: I have a steady place to live Within the past 12 months, did the food you bought not last and you didn't have the money to get more?: Never true Within the past 12 months, did you worry whether your food would run out before you got money to buy more?: Never true Do you have trouble paying for medicines?: No Do you have trouble getting transportation to medical appointments?: No Do you have trouble paying your heating and electricity bill?: No Do you have trouble taking care of your child, family member or friend?: No Do you have trouble with day-to-day activities such as bathing, preparing meals, shopping, managing finances, etc.?: No Are you currently unemployed and looking for a job?: No Are you interested in more education?: No THRIVE Score: 0 AUDIT C Alcohol Use Questionnaire (AUDIT-C) 1. How often do you have a drink containing alcohol?: Monthly or less 2. How many drinks containing alcohol do you have on a typical day when you are drinking?: 1 or 2 Total Score: 1 HEAVENLY-7 AMB Questionnaire HEAVENLY-7 Date HEAVENLY - 7 assessed: 03/25/25 Feeling nervous, anxious, or on edge: 1 = Several days Not being able to stop or control worryin = Several days Worrying too much about different things: 1 = Several days Trouble relaxin = Several days Being so restless that it is hard to sit still: 0 = Not at all Becoming easily annoyed or irritable: 1 = Several days Feeling afraid as if something awful might happen: 1 = Several days Total HEAVENLY-7 score (0-4 normal; 5-9 mild; 10-14 moderate; 15-21 severe): 6 Source: Developed by Drs. Jose Rafael Nickerson, Samantha Oliveira, Montrell Mcintosh and colleagues, with an educational angel from [employer]. Physical exam (Primary Care) Vital Signs: Last Vital Signs Temp 97.6 F 03/25/25 11:51 Pulse 81 03/25/25 11:51 Resp 16 03/25/25 11:51 BP 122/80 03/25/25 11:51 Pulse Ox 99 03/25/25 11:51 Oxygen Delivery Method Room Air 03/25/25 11:51 BMI result Body Mass Index 26.0 Tobacco/Smoking Status: Tobacco use Status Tobacco use date assessed 03/25/25 03/25/25 11:53 Patient Tobacco Use Status Never used Tobacco 03/25/25 11:53 e-Cigarette/Vaping Use Never Used 03/25/25 11:53 Coding Level of Care Code Est Pt Level 4 (80169) Complex EM visit Add On G2211 Diagnoses Postural orthostatic tachycardia syndrome I49.8 Anxiety F41.9 HTN (hypertension) I10 Assessment & Plan Assessment & Plan (1) Postural orthostatic tachycardia syndrome: Code(s): I49.8 - Other specified cardiac arrhythmias Category: Medical Plan: Stable as far as symptoms. However still experiencing tachycardic with position changes. Unable to tolerate beta-dajuan. Follow-up with cardiology as scheduled next week (2) Anxiety: Code(s): F41.9 - Anxiety disorder, unspecified Category: Medical Plan: Likely related to POTS. Unable to tolerate SSRI. Will increase BuSpar to 5 mg twice daily scheduled and can increase this to t.i.d. if needed. (3) HTN (hypertension): Comment: r/t pots Code(s): I10 - Essential (primary) hypertension Category: Medical Plan: Controlled. Continue amlodipine 2.5 mg daily Plan Follow up as scheduled for annual physcal. Complete labs today as ordered Medications: New magnesium 250 mg PO DAILY 270 tabs 1RF
[2025-03-25 11:51] VITALS: BP 122/80; PULSE 81; RESP 16; TEMP 36.4; O2SAT 99; BMI 26.0
--- OUTSIDE RECORDS SUMMARY | 2025-03-25 12:01 | XMS_ITS | Clinical Summary ---
Author Organization [facility] Address [address] [place] [id number] Phone Care Team Providers Care Supervisor Epoxy Fabrication Name Role Phone Wayne Montelongo MD Primary Care Provider Allergies No known active allergies Medications ibuprofen (ADVIL,MOTRIN) 800 MG tablet Take 800 mg by mouth every 6 (six) hours. 12/11/2020 Active phenazopyridine (PYRIDIUM) 100 MG tablet Take 2 tablets (200 mg total) by mouth 3 (three) times a day as needed for pain (specific location in comments) (URINARY DISCOMFORT). 6 tablet 03/07/2021 Active Active Problems No known active problems Social History Tobacco Use Types Packs/Day Years Used Date Smoking Tobacco: Never Smokeless Tobacco: Never Education Answer Date Recorded Are you interested in more education? Not on raymond e 01/04/2023 Are you concerned about learning? Not on file 01/04/2023 No 01/04/2023 No 01/04/2023 Digital Access Answer Date Recorded No 02/02/2023 No 02/02/2023 No 02/02/2023 Reliable internet access at home? Not on file 02/02/2023 Device with a working camera? Not on file Comments Unknown Sex and Gender Information Value Date Recorded Sex Assigned at Not on file Legal Sex Female 12:48 PM EDT Gender Identity Not on file Sexual Orientation Not on file Last Filed Vital Signs Vital Sign Reading Time Taken Comments Blood Pressure 145/95 03/07/2021 1:23 PM EDT Pulse 92 03/07/2021 1:23 PM EDT Temperature 36.9 C (98.4 F) 03/07/2021 1:23 PM EDT Respiratory Rate 18 03/07/2021 1:23 PM EDT Oxygen Saturation 100% 03/07/2021 1:23 PM EDT Inhaled Oxygen Concentration - - Weight 59.9 kg (132 lb) 03/07/2021 1:23 PM EDT Height - - Body Mass Index - - Plan of Treatment Health Maintenance Due Date Last Done Comments DEPRESSION SCREENING 1998 HEPATITIS C SCREENING 2004 HIV ONE-TIME SCREENING (18-6 5 YEARS) 2004 PAP SMEAR 2007 COVID-19 VACCINE (3 - 2023-2 5 season) 2024 04/16/2021, 03/24/2021 Adult Td,Tdap Booster 01/27/2027 01/27/2017 , 06/07/1999 HIB VACCINES Completed 10/31/1988 SMOKING STATUS SCREENING (On ce After 26 Yrs) Completed 03/07/2021 HEPATITIS A VACCINES Aged Out No long er eligible based on patient's age to complete this topic MENINGOCOCCAL VACCINES (ACWY) Aged Out No longer eligible based on patient's age to complete this topic MENINGOCOCCAL VACCINES (B) Aged Out N o longer eligible based on patient's age to complete this topic PNEUMOCOCCAL VACCINES (0-49 years) Aged Out No longer eligible b ased on patient's age to complete this topic Medical Devices Not on file Insurance [address] [id number] [facility] [employer] [facility] [employer] [employer] [facility] [employer] [facility] [employer] [employer] M[employer] [facility] TO[employer]HER [employer] [facility] [employer] Care Teams Supervisor Epoxy Fabrication Relationship Specialty Start Date End Date Wayne Montelongo MD [address] [place] [address] [place] [address] PCP - General 03/07/21 Additional Source Comments The information contained in this document represents components of the legal health record. It is not the complete legal health record.[facility]
--- OUTSIDE RECORDS SUMMARY | 2025-03-25 12:01 | XMS_ITS | Encounter Summary ---
Author Organization [facility] Address [address] [place] [address] Phone Care Team Providers Care Grinding Wheel Facer Name Role Phone Jeannie Arias MD Primary Care Provider Unava ilable Encounter Details Date Type Department Care Team (Late st Contact Info) Description 04/24/2017 Conversion Encounter [facility] - [address] [address] Social History Tobacco Use Types Packs/Day Years [...] on filedocumented in this encounter Care Teams Grinding Wheel Facer Relationship Specialty Start Date End Date Jeannie Arias MD PCP - General 04/18/17 documented as of this encounter
== END 2025-03-25 12:03 | disposition home or self-care (01) ==
LOC: HO.HMCHD 11:43
PROVIDERS: PCP Internal Medicine; Visit Provider Physician Assistant
DX: I49.8 Other specified cardiac arrhythmias (principal); F41.9 Anxiety disorder, unspecified; I10 Essential (primary) hypertension

== ENCOUNTER → 2025-03-25 11:42 | Outpatient (BNVA) | payer OTHER, SELFPAY | PROVIDERS: PCP Internal Medicine; Visit Provider Physician Assistant | DX: I49.8 Other specified cardiac arrhythmias (principal); F41.9 Anxiety disorder, unspecified; I10 Essential (primary) hypertension; G90.A Postural orthostatic tachycardia syndrome [POTS]; Z79.899 Other long term (current) drug therapy; Z13.30 Encounter for screening examination for mental health and behavioral disorders, unspecified; Z13.39 Encounter for screening examination for other mental health and behavioral disorders | CPT/HCPCS: 96127; 99212 ==

== ENCOUNTER 2025-03-29 08:55 | Outpatient (AMB) | payer OTHER, SELFPAY ==
[2025-03-29 09:01] VITALS: BP 120/64; PULSE 78; BMI 25.8
--- NOTE | 2025-03-29 09:01 | A.OFFVIS_ITS ---
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 She has been doing very well from cardiac perspective. Blood pressures been well controlled. She has not had significant orthostatic symptoms of lightheadedness. She still notices orthostatic tachycardia but does not bother her. She does not have any symptoms of palpitations. She has had no syncopal episodes. She tries to increase her fluid intake as much as possible. She is also exercising regularly. Her resting heart rate is in the upper 50s low 60s. She is not able to tolerate propranolol therapy as discussed more resting bradycardia. She is back on amlodipine along with spironolactone for her acne. [facility] Medical History HTN (hypertension) No significant past medical history Surgical History History of hemorrhoidectomy Hx of lithotripsy History of wisdom tooth extraction Family History Maternal Grandmother History of colon cancer Father HTN (hypertension) Mother HTN (hypertension) Paternal Uncle Vasovagal episode Social History Are you a primary careers adviser to a significant other at home: No Do you presently have visiting nurse or other home services: No Alcohol intake: never Patient Tobacco Use Status: Never used Tobacco e-Cigarette/Vaping Use: Never Used Review of Systems Const Denies chills, Denies fatigue, Denies fever(s), Denies frequent falls, Denies weakness, Denies weight gain and Denies weight loss ENT Denies dizziness Card Denies chest pain, Denies leg edema, Denies lightheadedness, Denies palpitations, Denies dyspnea, Denies dyspnea on exertion, Denies orthopnea and Denies other (loss of consciousness) Resp Denies cough, Denies dyspnea and Denies dyspnea on exertion GI Denies hematochezia and Denies change in stool character Musc Denies abnormal gait, Denies muscle weakness, Denies numbness, Denies radiating pain into limb and Denies tingling Neuro Denies abnormal gait, Denies dizziness, Denies frequent falls, Denies numbness, Denies tingling and Denies weakness Endo Denies fatigue and Denies palpitations Physical Exam Vital Signs: Last Vital Signs Pulse 102 H 03/29/25 09:14 BP 113/78 03/29/25 09:14 BMI result Body Mass Index 25.8 Const General: cooperative, comfortable, alert, awake and anxious Nutritional Appearance: thin Orientation/consciousness: patient oriented x3 Limitations: no limitations Neck Neck: Yes trachea midline, Yes supple and Yes no JVD Resp Effort & Inspection: normal respiratory effort Auscultation: clear to auscultation bilaterally Cardio Jugular venous distension: no JVD Palpation: normal PMI Rate: regular rate Rhythm: regular rhythm Heart sounds: S1 normal heart sound present and S2 normal heart sound present Skin General skin exam: no rashes or lesions noted Neuro General: patient oriented x3 and no focal motor deficits Extrem General: Yes normal to inspection Psych Appearance: grossly normal Affect: Anxious affect present Office Procedures EKG Details: EKG shows normal sinus rhythm with rightward axis otherwise no abnormality [id number], Complete Assessment & Plan Assessment & Plan (1) Postural orthostatic tachycardia syndrome: Code(s): I49.8 - Other specified cardiac arrhythmias Category: Medical Plan: Postural orthostatic tachycardia syndrome with still evidence of tachycardia with upright positioning without any clear symptoms with underlying hypertension. Hypertension is well optimized on low-dose amlodipine therapy. We discussed management of this again. She did not tolerate nonselective beta- blockers due to resting bradycardia. Have discussed with her about pursuing current therapy with additional oral hydration to help overall postural tachycardia. She understands agrees. If postural tachycardia becomes symptomatic can consider trying Corlanor therapy. Orthostatic precautions were discussed in details. Avoidance salt loading was discussed. She is encouraged to maintain good aerobic exercise capacity. She understands management well. Will follow up in the clinic in 2 years time, sooner p.r.n.. Thank you for allowing me to partake in her care Coding Level of Care Code Est Pt Level 4 (93703) Complex EM visit Add On G2211 Diagnoses Postural orthostatic tachycardia syndrome I49.8 CPT Codes EKG - CPT: 62210-[id number], Complete ([id number])
[2025-03-29 09:11] VITALS: BP 118/74; PULSE 86
[2025-03-29 09:14] VITALS: BP 113/78; PULSE 102
--- OUTSIDE RECORDS SUMMARY | 2025-03-29 09:21 | XMS_ITS | Encounter Summary ---
Author Organization [facility] Address [address] [place] [address] Phone Care Team Providers Care Chocolate Packer Name Role Phone Jeannie Arias MD Primary Care Provider Unava ilable Encounter Details Date Type Department Care Team (Late st Contact Info) Description 04/24/2017 Conversion Encounter [facility] - [address] [address] Social History Tobacco Use Types Packs/Day Years [...] on filedocumented in this encounter Care Teams Chocolate Packer Relationship Specialty Start Date End Date Jeannie Arias MD PCP - General 04/18/17 documented as of this encounter
== END 2025-03-29 09:26 | disposition home or self-care (01) ==
LOC: HO.HCS 08:56
PROVIDERS: PCP Internal Medicine; Visit Provider Internal Medicine Cardiovascular Disease
DX: I49.8 Other specified cardiac arrhythmias (principal)
CPT/HCPCS: 93010; 99214; G2211

== ENCOUNTER → 2025-03-29 08:55 | Outpatient (BNVA) | payer OTHER, SELFPAY | PROVIDERS: PCP Internal Medicine; Visit Provider Internal Medicine Cardiovascular Disease | DX: G90.A Postural orthostatic tachycardia syndrome [POTS] (principal); I49.8 Other specified cardiac arrhythmias | CPT/HCPCS: 93005; 99212 ==

== ENCOUNTER 2025-03-29 09:37 | Outpatient (REF) | payer OTHER, SELFPAY ==
[2025-03-29 13:14] LABS: MANUAL DIFF FLAG NO
[2025-03-29 13:50] LABS: Hematocrit 38.9 % (37.0-47.0); Hemoglobin 13.4 g/dl (12.0-16.0); Imm Gran Abs Auto 0.05 X10*3/uL (0.00-0.03); Imm Gran Pct Auto 0.5 % (0.0-0.4); Lymphocytes Absolute Auto 2.3 X10*3/uL (1.2-4.9); Mean Corpuscular HGB Conc 34.4 g/dl (31.0-35.0); Mean Corpuscular Hemoglobin 31.0 pg (27.0-33.0); Mean Corpuscular Volume 90.0 fL (80.0-98.0); NRBC Abs Auto 0.000 X10*3/uL (0.0-0.012); NRBC Pct Auto 0.0 /100WBC (0.0-0.2); Platelet Count 361 X10*3/uL (160-400); Red Blood Count 4.32 X10*6/uL (4.20-5.50); White Blood Count 9.1 X10*3/uL (4.8-10.8)
[2025-03-29 13:56] LABS: Hemoglobin A1C 107.8434 umol/L; Total Hemoglobin (HGBA1C) 3423.2478 umol/L
[2025-03-29 14:19] LABS: Alanine Aminotransferase 10 U/L (0-31); Albumin Level 4.5 g/dL (3.5-5.0); Alkaline Phosphatase 75 U/L (39-117); Anion Gap 12 (12-20); Aspartate Amino Transferase 21 U/L (5-31); Blood Urea Nitrogen 8 mg/dL (9-16); Calcium 8.8 mg/dL (8.4-10.2); Carbon Dioxide 25 mmol/L (22-29); Chloride 105 mmol/L (96-108); Cholesterol 139 mg/dL (<200); Estimated Glomerular Filt Rate > 60; HDL Cholesterol 40 mg/dL (>40); Potassium 4.3 mmol/L (3.3-5.1); Sodium 138 mmol/L (135-145); Total Protein 7.5 g/dL (6.5-8.0); Triglycerides 114 mg/dL (<150)
== END 2025-03-29 09:38 | disposition home or self-care (01) ==
LOC: HO.10HDL 09:37
PROVIDERS: Visit Provider Physician Assistant
DX: Z00.00 Encounter for general adult medical examination without abnormal findings (principal)
CPT/HCPCS: 36415; 80048; 80061; 80076; 83036; 84443; 85025

== ENCOUNTER 2025-05-18 08:13 | Outpatient (AMB) | payer OTHER, SELFPAY ==
--- NOTE | 2025-05-18 08:15 | A.OFFPC_ITS ---
Vital Signs 05/18/25 08:19 05/18/25 08:44 Height 5 ft 3 in Weight 66.678 kg BMI 26.0 BP 134/90 H 118/78 Respiration 14 Pulse 81 Pulse Source Pulse Oximeter Temp 97.6 F Temp Source Temporal Artery Scan Pulse Oximetry (%) 99 Oxygen Delivery Method Room Air Intake Visit Reasons: Annual Glass Wool Blanket Machine Feeder Required: No Accompanied by: Self / Same As Patient Allergies seafood Allergy (Verified 05/18/25 08:15) Angioedema Medication List - Last Reconciled 05/18/25 by MEL Villanueva amlodipine 2.5 mg PO DAILY buspirone 5 mg (1/2 x 10 mg) PO DAILY diphenhydramine HCl ([employer]) 50 mg PO BEDTIME spironolactone 25 mg PO DAILY Tobacco use date assessed: 03/25/25 HPI HPI Comments History of Present Illness Details 31-year-old female with history of POTS, hypertension, anxiety presenting to the office today for annual physical exam. She lives with her son and partner. 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 Reports only occasional alcohol use. No illicit drug use or marijuana. No history of cigarette smoking. She does endorse that she is not exercising as frequently as she previously did and could make some improvements to her diet. Lives with son and partner. Very occasional alcohol use. No drugs or marijuana. NO cigarette smoking. Hypertension-on amlodipine 2.5 mg daily and spironolactone 25 mg daily. Anxiety-on BuSpar 5mg daily but has taken up to twice dialy if needed POTS- still occasionally experiences transient episodes of tachycardia, but resting heart rate typically in the high 50s and 60s. Sill gets lightheadedness but isnt bothered by it. Drinking plenty of water. Following with Cardiology, Acne- spironolactone 25 mg daily Concerns: None Health maintenance: Mammograms to begin at age 40 Colonoscopies to begin at age 45 Last Pap smear 04/2021 with 5 year follow-up advised. 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 ROS: General: No fevers, malaise, unintentional weight loss HEENT: No blurred vision, diplopia. No sore throat, nasal congestion, rhinorrhea, sinus pain, ear pain. No hearing loss Neck - no adenopathy Cardiovascular: No chest pain, palpitations, or leg edema Respiratory: No shortness of breath, wheezing, cough Breast: No pain, palpable lumps, nipple inversion GI: No dysphagia, odynophagia, globus sensation. No abdominal pain, nausea, vomiting, diarrhea, constipation, melena, hematochezia : No dysuria, hematuria, increased urinary frequency, decreased urinary output. 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 No AH/VH. No SI/HI Skin: No rashes or lesions EXAM: Constitutional - Awake and Alert, No apparent distress Eyes - PERRLA, EOMI. Anicteric Ears - external ears normal, canals clear, TMs intact and pearly burciaga with good cone of light Nose- septum midline, nares clear, no sinus tenderness Mouth/throat- mucosa moist, tongue and uvula midline, no erythema/edema or tonsillar adenopathy. Neck-trachea midline, thyroid symmetric without palpable nodules, no adenopathy Cardiovascular - S1S2, RRR, No edema Respiratory - Normal lung expansion, Normal respiratory effort, No respiratory distress, CTA bilaterally Gastrointestinal - NT / ND; +BS; No rebound or guarding - No CVA tenderness Extremities - no calf tenderness bilaterally, no swelling Musculoskeletal - Normal inspection, normal ROM Skin - Warm/Dry, no concerning lesions Neurological - Alert & oriented x3, CN II-XII in tact, 5/5 strength BUE and BLE, 2+ patellar reflexes, sensation intact Psychological - Appropriate affect [facility] Medical History HTN (hypertension) No significant past medical history Surgical History History of hemorrhoidectomy Hx of lithotripsy History of wisdom tooth extraction Family History Maternal Grandmother History of colon cancer Diabetes Father HTN (hypertension) Mother HTN (hypertension) Paternal Uncle Vasovagal episode Social History Are you a primary care provider to a significant other at home: No Do you presently have visiting nurse or other home services: No Alcohol intake: never Patient Tobacco Use Status: Never used Tobacco e-Cigarette/Vaping Use: Never Used Questionnaire Thrive Questionnaire Date Thrive assessed: 03/25/25 HEAVENLY-7 AMB Questionnaire HEAVENLY-7 Date HEAVENLY - 7 assessed: 03/25/25 Source: Developed by Drs. Jose Rafael Nickerson, Samantha Oliveira, Montrell Mcintosh and colleagues, with an educational angel from [employer]. Physical exam (Primary Care) Vital Signs: Last Vital Signs Temp 97.6 F 05/18/25 08:19 Pulse 81 05/18/25 08:19 Resp 14 05/18/25 08:19 BP 134/90 H 05/18/25 08:19 Pulse Ox 99 05/18/25 08:19 Oxygen Delivery Method Room Air 05/18/25 08:19 BMI result Body Mass Index 26.0 Tobacco/Smoking Status: Tobacco use Status Tobacco use date assessed 03/25/25 05/18/25 08:21 Patient Tobacco Use Status Never used Tobacco 05/18/25 08:21 e-Cigarette/Vaping Use Never Used 05/18/25 08:21 Thrive Assessment: Date of Thrive Assessment Date Thrive assessed 03/25/25 05/18/25 08:21 Coding Level of Care Code Est Pt Prev Care 18-39y(84887) Diagnoses Routine medical exam Z00.00 Anxiety F41.9 HTN (hypertension) I10 Postural orthostatic tachycardia syndrome I49.8 Assessment & Plan Assessment & Plan (1) Routine medical exam: Code(s): Z00.00 - Encounter for general adult medical examination without abnormal findings Plan: 31-year-old female presenting for annual physical exam. Plan as below (2) Anxiety: Code(s): F41.9 - Anxiety disorder, unspecified Category: Medical Plan: Stable. Continue BuSpar as prescribed (3) HTN (hypertension): Comment: r/t pots Code(s): I10 - Essential (primary) hypertension Category: Medical Plan: Controlled on recheck. Related to POTS. Continue amlodipine 2.5 mg daily and spironolactone 25 mg daily (4) Postural orthostatic tachycardia syndrome: Code(s): I49.8 - Other specified cardiac arrhythmias Category: Medical Plan: Reviewed last note from Cardiology. Still experiencing symptoms but does not find the bothersome, will monitor. Continue with increased fluid intake. She is also considering functional medicine evaluation for root cause analysis Plan Labs reviewed with patient Continue with screening Pap smears. Colonoscopies and mammograms to begin at age 45 and 40 respectively Continue following for annual skin exams and use sun protection Annual eye exams Wear seat belt in car Recommend regular exercise and healthy diet Follow up in 6 months Medications: New buspirone 5 mg (1/2 x 10 mg) PO DAILY 90 tabs 1RF
[2025-05-18 08:19] VITALS: BP 134/90; PULSE 81; RESP 14; TEMP 36.4; O2SAT 99; BMI 26.0
[2025-05-18 08:44] VITALS: BP 118/78
== END 2025-05-18 08:45 | disposition home or self-care (01) ==
LOC: HO.HMCHD 08:14
PROVIDERS: PCP Internal Medicine; Visit Provider Physician Assistant
DX: Z00.00 Encounter for general adult medical examination without abnormal findings (principal); F41.9 Anxiety disorder, unspecified; I10 Essential (primary) hypertension; I49.8 Other specified cardiac arrhythmias

== ENCOUNTER → 2025-05-18 08:13 | Outpatient (BNVA) | payer OTHER, SELFPAY | PROVIDERS: PCP Internal Medicine; Visit Provider Physician Assistant | DX: Z00.00 Encounter for general adult medical examination without abnormal findings (principal); F41.9 Anxiety disorder, unspecified; I10 Essential (primary) hypertension; I49.8 Other specified cardiac arrhythmias; Z79.899 Other long term (current) drug therapy | CPT/HCPCS: 99395 ==